=== PATIENT | male | born 2000 | race Hispanic/Latino ===

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

== ENCOUNTER 2020-12-16 20:09 | Emergency (ER) | payer OTHER, SELFPAY ==
--- OUTSIDE RECORDS SUMMARY | 2020-12-16 20:12 | XMS REPORT | Continuity of Care Document ---
:2000 Author Organization [facility] t Address [address] [place] [address] Care Team Providers Name Role Phone Jose Harrison MD Attending Clinician Problems This patient has no known problems. Allergies, Adverse Reactions, Alerts This patient has no known allergies or adverse reactions. Medications This patient has no known medications. Procedures This patient has no known procedures. Encounters Start End Encounter Admission Attending Care Care Encounter Source Date/Time Date/Time Type Type Clinicians Facility Department ID 2020-12-14 2020-12-14 Refill [facility] [id number] 00:00:00 00:00:00 Jose [facility] [id number] [place] [id number] [facility] [phone] [place] [address] [address] 2020-11-26 2020-11-26 Telephone [facility] [id number] 00:00:00 00:00:00 Jose Chan [id number] [place] [id number] [facility] [phone] [address] 2020-11-20 2020-11-20 Telephone [facility] [id number] 00:00:00 00:00:00 Jose Chan [id number] [place] [id number] [facility] [phone] [facility] 044 [facility] 2020-11-12 2020-11-12 Office JYOTI Harrison [id number] 12:49:24 13:48:31 Visit Jose Rocio [id number] [place] [id number] [facility] [phone] [address] Results This patient has no known results.
[2020-12-16 21:09] LABS: Absolute Lymphocytes (CBC) 1.3 K/uL (0.7-4.9); Basophils % 0.6 % (0-1.3); Hematocrit 38.7 % (39.6-49.0); MPV 9.3 fL (7.6-11.3); RBC Red Blood Cell Count 4.52 M/uL (4.33-5.43)
[2020-12-16 21:22] LABS: Protime INR 1.04
[2020-12-16 21:42] LABS: Urine Blood Negative (Negative); Urine Glucose Negative (Negative); Urine Protein 1+ (Negative); Urine pH 8.5 (5.0-7.0)
[2020-12-16 21:55] LABS: ALT/SGPT 67 U/L (12-78); AST/SGOT 32 U/L (15-37); Albumin 4.7 g/dL (3.4-5.0); Alkaline Phosphatase 66 U/L (45-117); BUN Blood Urea Nitrogen 10 mg/dL (7-18); Bicarbonate 25 mmol/L (21-32); Bilirubin Direct 0.1 mg/dL (0-0.2); Bilirubin Total 0.5 mg/dL (0.2-1.0); Glucose Level 108 mg/dL (74-106); Potassium 3.6 mmol/L (3.5-5.1); Protein, Total 8.6 g/dL (6.4-8.2); Sodium Level 139 mmol/L (136-145)
[2020-12-16] MEDS ORDERED: METHADONE HCL 10 MG TAB PO ONE (22:06)
[2020-12-16] MEDS ORDERED: NA CHLORIDE 0.9% 1,000 ML ONE (22:07)
[2020-12-16] MEDS ORDERED: ONDANSETRON 4 MG/2 ML VIAL ONE (22:07)
[2020-12-16 22:45] LABS: Barbiturates NEGATIVE (NEGATIVE); Benzodiazepines NEGATIVE (NEGATIVE); Cocaine NEGATIVE (NEGATIVE); METHAMPHETAM NEGATIVE (NEGATIVE); Methadone NEGATIVE (NEGATIVE); Opiates NEGATIVE (NEGATIVE); Phencyclidine NEGATIVE (NEGATIVE); THC Cannibis POSITIVE (NEGATIVE)
--- NOTE | 2020-12-16 22:55 | EDPHYS ---
Physician Documentation [facility] Name: Fly De Luna Age: 20 yrs Sex: Male : 2000 Arrival Date: 12/16/2020 Time: 20:11 Bed 7 Private MD: ED Physician Jignesh Manjarrez HPI: 12/16 22:20 This 20 yrs old Male presents to ER via Wheelchair with complaints of jr8 WITHDRAWING FROM FENTANYL. 22:20 Patient stated that he has been on a formulation of fentanyl for about a year. Uses jr8 daily and is trying to get off of it permanently. Has been off of it today and now going through withdrawal. Wanted to know if there is any thing we can do for him to help ease the pain. Severity of symptoms: At their worst the symptoms were moderate in the emergency department the symptoms are unchanged. The patient has not experienced similar symptoms in the past. The patient has not recently seen a physician. Historical: - Allergies: 20:26 PENICILLINS; jb4 - Home Meds: 20:26 None [Active]; jb4 - PMHx: 20:26 None; jb4 - PSHx: 20:26 None; jb4 - Immunization history:: Adult Immunizations up to date. - Social history:: Smoking status: Patient reports the use of cigarette tobacco products, Patient uses street drugs, Fentanyl.. ROS: 22:20 Eyes: Negative for injury, pain, redness, and discharge, ENT: Negative for injury, jr8 pain, and discharge, Neck: Negative for injury, pain, and swelling, Cardiovascular: Negative for chest pain, palpitations, and edema, Respiratory: Negative for shortness of breath, cough, wheezing, and pleuritic chest pain, Abdomen/GI: Negative for abdominal pain, nausea, vomiting, diarrhea, and constipation, Back: Negative for injury and pain, MS/Extremity: Negative for injury and deformity, Skin: Negative for injury, rash, and discoloration, Neuro: Negative for headache, weakness, numbness, tingling, and seizure, Psych: Negative for depression, anxiety, suicide ideation, homicidal ideation, and hallucinations. 22:20 Constitutional: Positive for body aches, generalized pain to entire body . Exam: 22:20 Eyes: Pupils equal round and reactive to light, extra-ocular motions intact. Lids and jr8 lashes normal. Conjunctiva and sclera are non-icteric and not injected. Cornea within normal limits. Periorbital areas with no swelling, redness, or edema. ENT: Nares patent. No nasal discharge, no septal abnormalities noted. Tympanic membranes are normal and external auditory canals are clear. Oropharynx with no redness, swelling, or masses, exudates, or evidence of obstruction, uvula midline. Mucous membranes moist. Neck: Trachea midline, no thyromegaly or masses palpated, and no cervical lymphadenopathy. Supple, full range of motion without nuchal rigidity, or vertebral point tenderness. No Meningismus. Cardiovascular: Regular rate and rhythm with a normal S1 and S2. No gallops, murmurs, or rubs. Normal PMI, no JVD. No pulse deficits. Respiratory: Lungs have equal breath sounds bilaterally, clear to auscultation and percussion. No rales, rhonchi or wheezes noted. No increased work of breathing, no retractions or nasal flaring. Abdomen/GI: Soft, non-tender, with normal bowel sounds. No distension or tympany. No guarding or rebound. No evidence of tenderness throughout. Back: No spinal tenderness. No costovertebral tenderness. Full range of motion. Skin: Warm, dry with normal turgor. Normal color with no rashes, no lesions, and no evidence of cellulitis. MS/ Extremity: Pulses equal, no cyanosis. Neurovascular intact. Full, normal range of motion. Neuro: Awake and alert, GCS 15, oriented to person, place, time, and situation. Cranial nerves II-XII grossly intact. Motor strength 5/5 in all extremities. Sensory grossly intact Psych: Awake, alert, with orientation to person, place and time. Behavior, mood, and affect are within normal limits. No SI/HI noted 22:20 Constitutional: The patient appears alert, awake, uncomfortable. Vital Signs: 20:23 BP 128 / 61; Pulse 85; Resp 18; Temp 97.7(O); Pulse Ox 99% on R/A; Weight 83.91 kg (R); jb4 Height 5 ft. 9 in. (175.26 cm); Pain 10/10; 22:00 BP 114 / 73; Pulse 57; Resp 18; Pulse Ox 97% on R/A; Pain 6/10; jb4 20:23 Body Mass Index 27.32 (83.91 kg, 175.26 cm) jb4 MDM: 20:45 Patient medically screened. rust 22:22 Data reviewed: vital signs, nurses notes, lab test result(s), EKG. Data interpreted: jr8 Pulse oximetry: on room air is 98 %. Interpretation: normal. Counseling: I had a detailed discussion with the patient and/or guardian regarding: the historical points, exam findings, and any diagnostic results supporting the discharge/admit diagnosis, lab results, the need for outpatient follow up, a family practitioner, to return to the emergency department if symptoms worsen or persist or if there are any questions or concerns that arise at home. ED course: Discussed with patient that this is only a temporary fix. That we cannot detox him here and that he needs to find a detox clinic in [place]. Patient understands and overall has improved. Hemodynamically stable at this time. No vomiting and can tolerate oral fluids . 12/16 20:44 Order name: Acetaminophen rust 12/16 20:44 Order name: Basic Metabolic Panel rust 12/16 20:44 Order name: CBC with Diff rust 12/16 20:44 Order name: ETOH Level rust 12/16 20:44 Order name: Hepatic Function; Complete Time: 22:08 rust 12/16 20:44 Order name: PT-INR; Complete Time: 21:37 rust 12/16 20:44 Order name: Ptt, Activated; Complete Time: 21:37 rust 12/16 20:44 Order name: Salicylate; Complete Time: 22:08 rust 12/16 20:44 Order name: Urine Drug Screen; Complete Time: 23:34 rust 12/16 20:45 Order name: Acetaminophen Level; Complete Time: 22:08 [facility] 12/16 20:45 Order name: Basic Metabolic Panel; Complete Time: 22:08 [facility] 12/16 20:45 Order name: CBC with Automated Diff; Complete Time: 21:37 [facility] 12/16 20:45 Order name: Alcohol Serum/Plasma; Complete Time: 21:37 [facility] 12/16 21:41 Order name: Urine Dipstick-Ancillary; Complete Time: 21:43 [facility] 12/16 20:44 Order name: EKG; Complete Time: 20:46 rust 12/16 20:44 Order name: EKG - Nurse/Tech; Complete Time: 21:03 rust 12/16 20:44 Order name: IV Saline Lock; Complete Time: 21:03 rust 12/16 20:44 Order name: Labs collected and sent; Complete Time: 21:03 rust 12/16 20:44 Order name: Urine Dipstick-Ancillary (obtain specimen); Complete Time: 21:42 rust Administered Medications: 21:51 Drug: methaDONE 10 mg {Note: RASS 0.} Route: PO; 21:53 Drug: NS 0.9% 1000 ml Route: IV; Rate: 1000 ml; Site: left antecubital; 21:55 Drug: Zofran (Ondansetron) 4 mg Route: IVP; Site: left antecubital; Disposition: 23:53 Co-signature as Attending Physician, Jignesh Manjarrez MD. fernando Disposition: 12/16/20 22:55 Discharged to Home. Impression: Opioid abuse, Opioid dependence with withdrawal. - Condition is Stable. - Discharge Instructions: Opioid Withdrawal. - Medication Reconciliation Form, Thank You Letter, Antibiotic Education, Prescription Opioid Use form. - Follow up: Private Physician; When: Tomorrow; Reason: Recheck today's complaints, Continuance of care, Re-evaluation by your physician. - Problem is new. - Symptoms have improved. Signatures: Dispatcher [employer] EDMS Jignesh Manjarrez MD MD [facility] Prasanna Burns PA PA rust Festus Kelsey RN RN jb4 Lizzie Blandon RN RN Carmine MariaD oloresMercedes mw2 Corrections: (The following items were deleted from the chart) 21:11 20:44 Suicide Screening ([place]) ordered. [facility] 23:03 22:55 12/16/2020 22:55 Discharged to Home. Impression: Opioid abuse; Opioid dependence mw2 with withdrawal. Condition is Stable. Forms are Medication Reconciliation Form, Thank You Letter, Antibiotic Education, Prescription Opioid Use. Follow up: Private Physician; When: Tomorrow; Reason: Recheck today's complaints, Continuance of care, Re-evaluation by your physician. Problem is new. Symptoms have improved. rust 23:35 22:20 Eyes: Negative for injury, pain, redness, and discharge, ENT: Negative for 8 injury, pain, and discharge, Neck: Negative for injury, pain, and swelling, Cardiovascular: Negative for chest pain, palpitations, and edema, Respiratory: Negative for shortness of breath, cough, wheezing, and pleuritic chest pain, Abdomen/GI: Negative for abdominal pain, nausea, vomiting, diarrhea, and constipation, Back: Negative for injury and pain, MS/Extremity: Negative for injury and deformity, Skin: Negative for injury, rash, and discoloration, Neuro: Negative for headache, weakness, numbness, tingling, and seizure, jr8 23:35 22:20 Eyes: Pupils equal round and reactive to light, extra-ocular motions intact. Lids jr8 and lashes normal. Conjunctiva and sclera are non-icteric and not injected. Cornea within normal limits. Periorbital areas with no swelling, redness, or edema. ENT: Nares patent. No nasal discharge, no septal abnormalities noted. Tympanic membranes are normal and external auditory canals are clear. Oropharynx with no redness, swelling, or masses, exudates, or evidence of obstruction, uvula midline. Mucous membranes moist. Neck: Trachea midline, no thyromegaly or masses palpated, and no cervical lymphadenopathy. Supple, full range of motion without nuchal rigidity, or vertebral point tenderness. No Meningismus. Cardiovascular: Regular rate and rhythm with a normal S1 and S2. No gallops, murmurs, or rubs. Normal PMI, no JVD. No pulse deficits. Respiratory: Lungs have equal breath sounds bilaterally, clear to auscultation and percussion. No rales, rhonchi or wheezes noted. No increased work of breathing, no retractions or nasal flaring. Abdomen/GI: Soft, non-tender, with normal bowel sounds. No distension or tympany. No guarding or rebound. No evidence of tenderness throughout. Back: No spinal tenderness. No costovertebral tenderness. Full range of motion. Skin: Warm, dry with normal turgor. Normal color with no rashes, no lesions, and no evidence of cellulitis. MS/ Extremity: Pulses equal, no cyanosis. Neurovascular intact. Full, normal range of motion. Neuro: Awake and alert, GCS 15, oriented to person, place, time, and situation. Cranial nerves II-XII grossly intact. Motor strength 5/5 in all extremities. Sensory grossly intact jr8
--- NOTE | 2020-12-16 22:55 | ER ---
Nurse's Notes [facility] Name: Fly De Luna Age: 20 yrs Sex: Male : 2000 Arrival Date: 12/16/2020 Time: 20:11 Bed 7 Private MD: Diagnosis: Opioid abuse;Opioid dependence with withdrawal Presentation: 12/16 20:23 Chief complaint: Patient states: I was taking fentanyl for recreational purposes and jb4 now I am just trying to stop and I am going through withdrawals. Coronavirus screen: Client denies travel out of the [place] in the last 14 days. At this time, the client does not indicate any symptoms associated with coronavirus-19. Ebola Screen: No symptoms or risks identified at this time. Initial Sepsis Screen: Does the patient meet any 2 criteria? No. Patient's initial sepsis screen is negative. Does the patient have a suspected source of infection? No. Patient's initial sepsis screen is negative. Risk Assessment: Do you want to hurt yourself or someone else? Patient reports no desire to harm self or others. Onset of symptoms was December 16, 2020. Transition of care: patient was not received from another setting of care. 20:23 Method Of Arrival: Wheelchair jb4 20:23 Acuity: DUC 2 jb4 Historical: - Allergies: 20:26 PENICILLINS; jb4 - Home Meds: 20:26 None [Active]; jb4 - PMHx: 20:26 None; jb4 - PSHx: 20:26 None; jb4 - Immunization history:: Adult Immunizations up to date. - Social history:: Smoking status: Patient reports the use of cigarette tobacco products, Patient uses street drugs, Fentanyl.. Screenin:02 Abuse screen: Denies threats or abuse. Nutritional screening: No deficits noted. vg1 Tuberculosis screening: No symptoms or risk factors identified. Fall Risk No fall in past 12 months (0 pts). No secondary diagnosis (0 pts). IV access (20 points). Ambulatory Aid- None/Bed Rest/Nurse Assist (0 pts). Gait- Normal/Bed Rest/Wheelchair (0 pts) Mental Status- Oriented to own ability (0 pts). Total Fernandez Fall Scale indicates No Risk (0-24 pts). Assessment: 20:45 General: Appears in no apparent distress. uncomfortable, Behavior is cooperative, vg1 anxious, crying. Pain: Complains of pain in pt states 'whole body hurts' Pain currently is 10 out of 10 on a pain scale. Neuro: Level of Consciousness is awake, alert, obeys commands, Oriented to person, place, time, situation. Cardiovascular: Capillary refill < 3 seconds in bilateral. Respiratory: Airway is patent Respiratory effort is even, unlabored, Respiratory pattern is tachypnea. GI: Reports nausea, vomiting. : No signs and/or symptoms were reported regarding the genitourinary system. EENT: No signs and/or symptoms were reported regarding the EENT system. Derm: Skin is intact, Skin is diaphoretic. Musculoskeletal: Circulation, motion, and sensation intact. 21:45 Reassessment: spoke to by phone who said she is the pt's mother and this person bb states that the pt should not be discharged but transferred to a psychiatric facility. She claims that he is not in his right mind and is suicidal I instructed her that I would notify the ED provider. Prasanna GREEN was notified. 22:18 Reassessment: Patient appears in no apparent distress at this time. Patient and/or jb4 family updated on plan of care and expected duration. Pain level reassessed. Patient is alert, oriented x 3, equal unlabored respirations, skin warm/dry/pink. Pt reports pain is returning, provider notified, no new orders at this time. Vital Signs: 20:23 BP 128 / 61; Pulse 85; Resp 18; Temp 97.7(O); Pulse Ox 99% on R/A; Weight 83.91 kg (R); jb4 Height 5 ft. 9 in. (175.26 cm); Pain 10/10; 22:00 BP 114 / 73; Pulse 57; Resp 18; Pulse Ox 97% on R/A; Pain 6/10; jb4 20:23 Body Mass Index 27.32 (83.91 kg, 175.26 cm) jb4 ED Course: 20:11 Patient arrived in ED. cf2 20:26 Triage completed. jb4 20:26 Arm band placed on right wrist. jb4 20:42 Nathalie Ragsdale, RN is Primary Nurse. vg1 20:44 Prasanna Burns PA is PHCP. jr8 20:44 Jignesh Manjarrez MD is Attending Physician. jr8 20:55 Missed attempt(s): 20 gauge Bleeding controlled, band aid applied, catheter tip intact. oe 21:02 Patient has correct armband on for positive identification. Placed in gown. Bed in low vg1 position. Call light in reach. Side rails up X2. Adult w/ patient. 21:03 Inserted saline lock: 20 gauge in left antecubital area, using aseptic technique. Blood oe collected. 23:00 No provider procedures requiring assistance completed. IV discontinued, intact, jb4 bleeding controlled, No redness/swelling at site. Pressure dressing applied. Administered Medications: 21:51 Drug: methaDONE 10 mg {Note: RASS 0.} Route: PO; 21:53 Drug: NS 0.9% 1000 ml Route: IV; Rate: 1000 ml; Site: left antecubital; 21:55 Drug: Zofran (Ondansetron) 4 mg Route: IVP; Site: left antecubital; Outcome: 22:55 Discharge ordered by . jr8 23:00 Discharged to home via wheelchair. jb4 23:00 Condition: stable 23:00 Discharge instructions given to patient, Instructed on discharge instructions, follow up and referral plans. Demonstrated understanding of instructions, follow-up care. 23:03 Patient left the ED. mw2 Signatures: Jazmin Eason RN RN Prasanna Merritt PA PA jr8 Festus Kelsey, RN RN jb4 Volodymyr Murray Winsy, RN RN Carl Lou mw2 Lucy Cutler 2 Nathalie Ragsdale, RN RN vg1 Corrections: (The following items were deleted from the chart) 21:49 21:45 Reassessment: spoke to ladchelsea by phone who said she is the pt's mother and this bb person states that the pt should not be discharged but transferred to a psychiatric facility. I instructed her that I would notify the ED provider. Prasanna GREEN was notified. bb 23:06 23:05 No provider procedures requiring assistance completed. jb4 jb4 23:06 23:05 IV discontinued, intact, bleeding controlled, No redness/swelling at site. jb4 Pressure dressing applied, jb4
[2020-12-16 23:20] VITALS: BP 114/73; O2SAT 97
[2020-12-16 23:22] VITALS: TEMP 97.7
== END 2020-12-16 23:03 | disposition home or self-care (01) ==
LOC: ER 20:09
DX: F11.23 Opioid dependence with withdrawal (principal); F17.210 Nicotine dependence, cigarettes, uncomplicated; Z88.0 Allergy status to penicillin
CPT/HCPCS: 36415; 80048; 80076; 80307; 80320; 80329; 81003; 85025; 85610; 85730; 93005; 96374; 99283; J2405; J7030

== ENCOUNTER 2023-07-10 02:14 | Emergency (ER) | payer SELFPAY ==
--- OUTSIDE RECORDS SUMMARY | 2023-07-10 02:19 | XMS REPORT | Continuity of Care Document ---
:2000 Author Organization [facility] t Address [address] [place] [address] Care Team Providers Name Role Phone Ortiz Harrison MD Primary Care Physician Ortiz Harrison MD Attending Clinician Pob, [facility] Main Attending Clinician Unavailable ORTIZ HARRISON Attending Clinician Unavailable Doctor Unassigned, Road Runner Attending Clinician Unavailable 2, [facility] Attending Clinician Unavailable Rachna Velasquez MD Attending Clinician RACHNA VELASQUEZ Attending Clinician Unavailable Alejandra Mccullough Attending Clinician Unavailable Cony Stafford Attending Clinician Payers Payer Name Policy Type Policy Number Effective Date Expiration Date S ource Problems Condition Condition Condition Status Onset Resolution Last Treating Co mments Source Name Details Category Date Date Treatment Clinician Date Mixed Mixed Disease Active Univers dyslipidem dyslipidem 8-12 it y of ia ia 00:00: [place] [address] Medical Branch Need for Need for Disease Active Unive rs hepatitis hepatitis 8-12 ity of C C 00:00: [place] screening screening 00 Medi tricia test test Branch Essential Essential Disease Active Uni vers hypertensi hypertensi 3-25 it y of on on 00:00: [place] [address] Medical Branch NO SHOW NO SHOW Disease Active 2020-1 Univers 2-01 ity of 00:00: [place] [facility] Anxiety Anxiety Disease Active [facility] and and 9 [place] Under or Under or Disease Active Unive rs uninsured uninsured 3-08 ity of 00:00: [place] [facility] Allergic Allergic Disease Active 2018-08 Unive rs rhinitis, rhinitis, 08-29 ity [place] unspecifie [place] Medical seasonalit seasonalit Br anch y, y, unspecifie unspecifie d trigger d trigger Insomnia, Insomnia, Disease Active Uni vers unspecifie unspecifie 05-01 it y of d type d type 00:00: Medical Branch Acne Acne Disease Active 2015-08 Univers vulgaris vulgaris 09-17 ity of 00:00: Medical Branch Acne Acne Disease Active 2015-08 Univers vulgaris vulgaris 09-17 ity of 00:00: Medical Branch ADHD ADHD Disease Active Overview: Univer s (attention (attention Formattin ity of deficit deficit g of this [place] hyperactiv hyperactiv note Me dical ity ity might be Branch disorder) disorder) different from the original. On Adderall since 2017 Allergies, Adverse Reactions, Alerts Allergy Allergy Status Severity Reaction(s) Onset Inactive Treating Comm ents Source Name Type Date Date Clinician CEPHALOS Drug Active Med Other-Cmnt Univ ers PORINS Class - ity of 00:00: [place] [facility] Cephalos Propensi Active Other - See Throat U nivers porins ty to comments 05-02 itching, ity of adverse 00:00: shortness [place] reaction 00 of breath Medic al s Branch PENICILL DRUG Active Rash Univers IN G INGREDI 12-14 ity of 00:00: [place] [facility] Penicill Propensi Active Rash Univer s in G ty to 12-14 ity of adverse 00:00: [place] reaction 00 Medical s Branch Social History Social Habit Start Date Stop Date Quantity Comments Source Exposure to Not sure University of SARS-CoV-2 [place] [facility] (event) Branch Alcohol intake 2021-05-11 2021-05-11 Current University of 00:00:00 00:00:00 non-drinker of [facility] alcohol Branch (finding) Tobacco use and 2021-04-01 2021-04-01 Never used Universit y of exposure 00:00:00 00:00:00 [facility] Sex Assigned At 2000 2000 Universit y of 00:00:00 00:00:00 [facility] Smoking Status Start Date Stop Date Source Never smoker [facility] Medications Ordered Filled Start Stop Current Ordering Indication Dosage Frequency Signature Comments Components Source Medication Medication Date Date Medication? Clinician (SIG) Name Name dextroamphe Yes [id number] 30mg Take 1 Univers tamine-amph 9-21 tablet by ity of etamine 30 [place] 00 (two) Medical times Branch daily. Take one tablet each morning and one tablet after lunch at school. dextroamphe Yes [id number] 30mg Take 1 Univers tamine-amph 9-21 tablet by ity of etamine 30 00:00[place] 00 (two) Medical times Branch daily. Take one tablet each morning and one tablet after lunch at school. dextroamphe Yes [id number] 30mg Take 1 Univers tamine-amph 9-21 tablet by ity of etamine 30 00:00: [place] 00 (two) Medical times Branch daily. Take one tablet each morning and one tablet after lunch at school. cloNIDine Yes .2mg Take 0.2 Univ ers 0.2 mg 8-12 mg by ity of tablet 18:44: mouth once now. Take Medical at bedtime Branch cloNIDine 2020-0 Yes .2mg Take 0.2 Univ ers 0.2 mg 8-12 mg by ity of tablet 18:44: mouth once now. Take Medical at bedtime Branch cloNIDine 2020-0 Yes .2mg Take 0.2 Univ ers 0.2 mg 8-12 mg by ity of tablet 18:44: mouth once now. Take Medical at bedtime Branch cloNIDine 2020-0 Yes .2mg Take 0.2 Univ ers 0.2 mg 8-12 mg by ity of tablet 18:44: mouth once now. Take Medical at bedtime Branch cloNIDine 2020-0 Yes .2mg Take 0.2 Univ ers 0.2 mg 8-12 mg by ity of tablet 13:44: mouth once now. Take Medical at bedtime Branch cloNIDine 0 Yes .2mg Take 0.2 Univ ers 0.2 mg 8-12 mg by ity of tablet 13:44: mouth once 07 now. Take Medical at bedtime Branch cloNIDine 0 Yes .2mg Take 0.2 Univ ers 0.2 mg 8-12 mg by ity of tablet 13:44: mouth once 07 now. Take Medical at bedtime Branch lisinopriL 0 Yes [id number] 5mg Take 1 U nivers 5 mg tablet 8-12 tablet by ity of 00:00: mouth [place] 00 daily. Medical Branch ezetimibe 0 Yes [id number] 10mg Take 1 U nivers (ZETIA) 10 8-12 tablet by ity of mg tablet 00:00: mouth [place] 00 daily. Medical Branch atorvastati Yes [id number] 40mg Take 1 Univers n 40 mg 8-12 tablet by ity of tablet 00:00: mouth at [place] 00 bedtime. Medical Branch dextroamphe Yes [id number] 30mg Take 1 Univers tamine-amph 8-12 tablet by ity of etamine 30 00:00: [place] tablet 00 (two) Medical times Branch daily. Take one tablet each morning and one tablet after lunch at school. lisinopriL 0 Yes [id number] 5mg Take 1 U nivers 5 mg tablet 8-12 tablet by ity of 00:00: mouth [place] 00 daily. Medical Branch ezetimibe 0 Yes [id number] 10mg Take 1 U nivers (ZETIA) 10 8-12 tablet by ity of mg tablet 00:00: mouth [place] 00 daily. Medical Branch atorvastati Yes [id number] 40mg Take 1 Univers n 40 mg 8-12 tablet by ity of tablet 00:00: mouth at [place] 00 bedtime. Medical Branch dextroamphe Yes [id number] 30mg Take 1 Univers tamine-amph 8-12 tablet by ity of etamine 30 00:00: mouth [place] tablet 00 (two) Medical times Branch daily. Take one tablet each morning and one tablet after lunch at school. lisinopriL 2020-0 Yes [id number] 5mg Take 1 U nivers 5 mg tablet 8-12 tablet by ity of 00:00: mouth [place] 00 daily. Medical Branch ezetimibe 2020-0 Yes [id number] 10mg Take 1 U nivers (ZETIA) 10 8-12 tablet by ity of mg tablet 00:00: mouth [place] 00 daily. Medical Branch atorvastati 2020-0 Yes [id number] 40mg Take 1 Univers n 40 mg 8-12 tablet by ity of tablet 00:00: mouth at [place] 00 bedtime. Medical Branch dextroamphe 2020-0 Yes [id number] 30mg Take 1 Univers tamine-amph 8-12 tablet by ity of etamine 30 00:00: [place] tablet 00 (two) Medical times Branch daily. Take one tablet each morning and one tablet after lunch at school. lisinopriL 2020-0 Yes [id number] 5mg Take 1 U nivers 5 mg tablet 8-12 tablet by ity of 00:00: mouth [place] 00 daily. Medical Branch ezetimibe 2020-0 Yes [id number] 10mg Take 1 U nivers (ZETIA) 10 8-12 tablet by ity of mg tablet 00:00: mouth [place] 00 daily. Medical Branch atorvastati 2020-0 Yes [id number] 40mg Take 1 Univers n 40 mg 8-12 tablet by ity of tablet 00:00: mouth at [place] 00 bedtime. Medical Branch dextroamphe 2020-0 Yes [id number] 30mg Take 1 Univers tamine-amph 8-12 tablet by ity of etamine 30 00:00: mouth [place] tablet 00 (two) Medical times Branch daily. Take one tablet each morning and one tablet after lunch at school. lisinopriL 2020-0 Yes [id number] 5mg Take 1 U nivers 5 mg tablet 8-12 tablet by ity of 00:00: mouth [place] 00 daily. Medical Branch ezetimibe 2020-0 Yes [id number] 10mg Take 1 U nivers (ZETIA) 10 8-12 tablet by ity of mg tablet 00:00: mouth [place] 00 daily. Medical Branch atorvastati 2020-0 Yes [id number] 40mg Take 1 Univers n 40 mg 8-12 tablet by ity of tablet 00:00: mouth at [place] 00 bedtime. Medical Branch lisinopriL 2020-0 Yes [id number] 5mg Take 1 U nivers 5 mg tablet 8-12 tablet by ity of 00:00: mouth [place] 00 daily. Medical Branch ezetimibe 2020-0 Yes [id number] 10mg Take 1 U nivers (ZETIA) 10 8-12 tablet by ity of mg tablet 00:00: mouth [place] 00 daily. Medical Branch atorvastati 2020-0 Yes [id number] 40mg Take 1 Univers n 40 mg 8-12 tablet by ity of tablet 00:00: mouth at [place] 00 bedtime. Medical Branch lisinopriL 0 Yes [id number] 5mg Take 1 U nivers 5 mg tablet 8-12 tablet by ity of 00:00: mouth [place] 00 daily. Medical Branch ezetimibe 0 Yes [id number] 10mg Take 1 U nivers (ZETIA) 10 8-12 tablet by ity of mg tablet 00:00: mouth [place] 00 daily. Medical Branch atorvastati 0 Yes [id number] 40mg Take 1 Univers n 40 mg 8-12 tablet by ity of tablet 00:00: mouth at [place] 00 bedtime. Medical Branch dextroamphe 2020- No [id number] 30mg Take 1 Univers tamine-amph 04-01 tablet by it y of etamine 30 00:00: 00:00 mouth 2 [place] mg tablet 00 :00 (two) Medical times Branch daily. Take one tablet each morning and one tablet after lunch at school. dextroamphe 2020- No [id number] 30mg Take 1 Univers tamine-amph 04-01 tablet by it y of etamine 30 00:00: 00:00 mouth 2 [place] mg tablet 00 :00 (two) Medical times Branch daily. Take one tablet each morning and one tablet after lunch at school. dextroamphe 2020- No [id number] 30mg Take 1 Univers tamine-amph 04-01 tablet by it y of etamine 30 00:00: 00:00 mouth 2 [place] mg tablet 00 :00 (two) Medical times Branch daily. Take one tablet each morning and one tablet after lunch at school. dextroamphe Yes [id number] 30mg Take 1 Univers tamine-amph 5-19 tablet by ity of etamine 30 00:00: [place] tablet 00 (two) Medical times Branch daily. Take one tablet each morning and one tablet after lunch at school. dextroamphe 2020- No [id number] 30mg Take 1 Univers tamine-amph 5-19 08-12 tablet by it y of etamine 30 00:00: 00:00 mouth 2 [place] mg tablet 00 :00 (two) Medical times Branch daily. Take one tablet each morning and one tablet after lunch at school. dextroamphe 2020- No [id number] 30mg Take 1 Univers tamine-amph 5-19 08-12 tablet by it y of etamine 30 00:00: 00:00 mouth 2 [place] mg tablet 00 :00 (two) Medical times Branch daily. Take one tablet each morning and one tablet after lunch at school. dextroamphe Yes [id number] 30mg Take 1 Univers tamine-amph 4-27 tablet by ity of etamine 30 00:00: mouth [place] tablet 00 (two) Medical times Branch daily. Take one tablet each morning and one tablet after lunch at school. dextroamphe 2020- No [id number] 30mg Take 1 Univers tamine-amph 4-27 05-19 tablet by it y of etamine 30 00:00: 00:00 mouth 2 [place] mg tablet 00 :00 (two) Medical times Branch daily. Take one tablet each morning and one tablet after lunch at school. atorvastati Yes [id number] 40mg Take 1 Univers n 40 mg 4-02 tablet by ity of tablet 00:00: mouth at [place] 00 bedtime. Medical Branch ezetimibe Yes [id number] 10mg Take 1 U nivers (ZETIA) 10 4-02 tablet by ity of mg tablet 00:00: mouth [place] 00 daily. Medical Branch atorvastati Yes [id number] 40mg Take 1 Univers n 40 mg 4-02 tablet by ity of tablet 00:00: mouth at [place] 00 bedtime. Medical Branch ezetimibe Yes [id number] 10mg Take 1 U nivers (ZETIA) 10 4-02 tablet by ity of mg tablet 00:00: mouth [place] 00 daily. Medical Branch atorvastati Yes [id number] 40mg Take 1 Univers n 40 mg 4-02 tablet by ity of tablet 00:00: mouth at [place] 00 bedtime. Medical Branch ezetimibe Yes [id number] 10mg Take 1 U nivers (ZETIA) 10 4-02 tablet by ity of mg tablet 00:00: mouth [place] 00 daily. Medical Branch atorvastati Yes [id number] 40mg Take 1 Univers n 40 mg 4-02 tablet by ity of tablet 00:00: mouth at [place] 00 bedtime. Medical Branch ezetimibe Yes [id number] 10mg Take 1 U nivers (ZETIA) 10 4-02 tablet by ity of mg tablet 00:00: mouth [place] 00 daily. Medical Branch atorvastati 2020- No [id number] 40mg Take 1 Univers n 40 mg 4-02 08-12 tablet by ity of tablet 00:00: 00:00 mouth at [place] 00 :00 bedtime. Medical Branch ezetimibe 2020- No [id number] 10mg Take 1 Univers (ZETIA) 10 4-02 08-12 tablet by ity of mg tablet 00:00: 00:00 mouth [place] 00 :00 daily. Medical Branch atorvastati 2020- No [id number] 40mg Take 1 Univers n 40 mg 4-02 08-12 tablet by ity of tablet 00:00: 00:00 mouth at [place] 00 :00 bedtime. Medical Branch ezetimibe 2020- No [id number] 10mg Take 1 Univers (ZETIA) 10 4-02 08-12 tablet by ity of mg tablet 00:00: 00:00 mouth [place] 00 :00 daily. Medical Branch Melatonin 5 Yes [id number] 5mg Take 1 U nivers mg tablet 3-25 tablet by ity o f 00:00: mouth at [place] 00 bedtime. Medical Branch dextroamphe Yes [id number] 30mg Take 1 Univers tamine-amph 3-25 tablet by ity of etamine 30 00:00: mouth 2 [place] mg tablet 00 (two) Medical times Branch daily. Take one tablet each morning and one tablet after lunch at school. lisinopriL Yes [id number] 5mg Take 1 U nivers 5 mg tablet 3-25 tablet by ity of 00:00: mouth [place] 00 daily. Medical Branch Miscellaneo Yes [id number] I10 - U nivers us Medical 3-25 Dispense ity o f Supply Kit 00:00: blood [place] 00 pressure Medical cuff (any Branch brand), take BP at home BID Melatonin 5 2020-0 Yes [id number] 5mg Take 1 U nivers mg tablet 3-25 tablet by ity o f 00:00: mouth at [place] 00 bedtime. Medical Branch dextroamphe Yes [id number] 30mg Take 1 Univers tamine-amph 3-25 tablet by ity of etamine 30 00:00: mouth 2 [place] mg tablet 00 (two) Medical times Branch daily. Take one tablet each morning and one tablet after lunch at school. lisinopriL Yes [id number] 5mg Take 1 U nivers 5 mg tablet 3-25 tablet by ity of 00:00: mouth [place] 00 daily. Medical Branch Miscellaneo Yes [id number] I10 - U nivers us Medical 3-25 Dispense ity o f Supply Kit 00:00: blood [place] 00 pressure Medical cuff (any Branch brand), take BP at home BID Melatonin 5 2020-0 Yes [id number] 5mg Take 1 U nivers mg tablet 3-25 tablet by ity o f 00:00: mouth at [place] 00 bedtime. Medical Branch dextroamphe Yes [id number] 30mg Take 1 Univers tamine-amph 3-25 tablet by ity of etamine 30 00:00: mouth 2 [place] mg tablet 00 (two) Medical times Branch daily. Take one tablet each morning and one tablet after lunch at school. lisinopriL Yes [id number] 5mg Take 1 U nivers 5 mg tablet 3-25 tablet by ity of 00:00: mouth [place] 00 daily. Medical Branch Miscellaneo Yes [id number] I10 - U nivers us Medical 3-25 Dispense ity o f Supply Kit 00:00: blood [place] pressure Medical cuff (any Branch brand), take BP at home BID Melatonin 5 Yes [id number] 5mg Take 1 U nivers mg tablet 3-25 tablet by ity o f 00:00: mouth at [place] 00 bedtime. Medical Branch dextroamphe Yes [id number] 30mg Take 1 Univers tamine-amph 3-25 tablet by ity of etamine 30 00:00: mouth 2 [place] mg tablet 00 (two) Medical times Branch daily. Take one tablet each morning and one tablet after lunch at school. lisinopriL Yes [id number] 5mg Take 1 U nivers 5 mg tablet 3-25 tablet by ity of 00:00: mouth [place] 00 daily. Medical Branch Miscellaneo Yes [id number] I10 - U nivers us Medical 3-25 Dispense ity o f Supply Kit 00:00: blood [place] pressure Medical cuff (any Branch brand), take BP at home BID Melatonin 5 Yes [id number] 5mg Take 1 U nivers mg tablet 3-25 tablet by ity o f 00:00: mouth at [place] 00 bedtime. Medical Branch lisinopriL Yes [id number] 5mg Take 1 U nivers 5 mg tablet 3-25 tablet by ity of 00:00: mouth [place] 00 daily. Medical Branch Miscellaneo Yes [id number] I10 - U nivers us Medical 3-25 Dispense ity o f Supply Kit 00:00: blood [place] pressure Medical cuff (any Branch brand), take BP at home BID Melatonin 5 Yes [id number] 5mg Take 1 U nivers mg tablet 3-25 tablet by ity o f 00:00: mouth at [place] 00 bedtime. Medical Branch lisinopriL Yes [id number] 5mg Take 1 U nivers 5 mg tablet 3-25 tablet by ity of 00:00: mouth [place] 00 daily. Medical Branch Miscellaneo Yes [id number] I10 - U nivers us Medical 3-25 Dispense ity o f Supply Kit 00:00: blood [place] pressure Medical cuff (any Branch brand), take BP at home BID Melatonin 5 Yes [id number] 5mg Take 1 U nivers mg tablet 3-25 tablet by ity o f 00:00: mouth at [place] 00 bedtime. Medical Branch Miscellaneo Yes [id number] I10 - U nivers Medical 3-25 Dispense ity o f Supply Kit 00:00: blood pressure Medical cuff (any Branch brand), take BP at home BID Melatonin 5 2020- Yes [id number] 5mg Take 1 U nivers mg tablet 3-25 tablet by ity o f 00:00: mouth at [place] 00 bedtime. Medical Branch Miscellaneo Yes [id number] I10 - U nivers [facility] 3-25 Dispense ity o f Supply Kit 00:00: blood pressure Medical cuff (any Branch brand), take BP at home BID Melatonin 5 Yes [id number] 5mg Take 1 U nivers mg tablet 3-25 tablet by ity o f 00:00: mouth at [place] 00 bedtime. Medical Branch Miscellaneo Yes [id number] I10 - U nivers [facility] 3-25 Dispense ity o f Supply Kit 00:00: blood pressure Medical cuff (any Branch brand), take BP at home BID Melatonin 5 Yes [id number] 5mg Take 1 U nivers mg tablet 3-25 tablet by ity o f 00:00: mouth at [place] 00 bedtime. Medical Branch Miscellaneo Yes [id number] I10 - U nivers [facility] 3-25 Dispense ity o f Supply Kit 00:00: blood pressure Medical cuff (any Branch brand), take BP at home BID Melatonin 5 Yes [id number] 5mg Take 1 U nivers mg tablet 3-25 tablet by ity o f 00:00: mouth at [place] 00 bedtime. Medical Branch Miscellaneo Yes [id number] I10 - U nivers Medical 3-25 Dispense ity o f Supply Kit 00:00: blood pressure Medical cuff (any Branch brand), take BP at home BID Melatonin 5 2020- Yes [id number] 5mg Take 1 U nivers mg tablet 3-25 tablet by ity o f 00:00: mouth at [place] 00 bedtime. Medical Branch Miscellaneo Yes [id number] I10 - U nivers us Medical 3-25 Dispense ity o f Supply Kit 00:00: blood [place] 00 pressure Medical cuff (any Branch brand), take BP at home BID Melatonin 5 Yes [id number] 5mg Take 1 U nivers mg tablet 3-25 tablet by ity o f 00:00: mouth at [place] 00 bedtime. Medical Branch Miscellaneo Yes [id number] I10 - U nivers us Medical 3-25 Dispense ity o f Supply Kit 00:00: blood [place] 00 pressure Medical cuff (any Branch brand), take BP at home BID lisinopriL 2020- No [id number] 5mg Take 1 Univers 5 mg tablet 3-25 08-12 tablet by it y of 00:00: 00:00 mouth [place] 00 :00 daily. Medical Branch lisinopriL 2020- No [id number] 5mg Take 1 Univers 5 mg tablet 3-25 08-12 tablet by it y of 00:00: 00:00 mouth [place] 00 :00 daily. Medical Branch dextroamphe 2020- No [id number] 30mg Take 1 Univers tamine-amph 3-25 04-27 tablet by it y of etamine 30 00:00: 00:00 mouth 2 [place] tablet 00 :00 (two) Medical times [place] daily. Take one tablet each morning and one tablet after lunch at school. dextroamphe 2019-08 Yes [id number] 30mg Take 1 Univers tamine-amph 2-13 tablet by ity of etamine 30 00:00: mouth 2 [place] mg tablet 00 (two) Medical times Branch daily. Take one tablet each morning and one tablet after lunch at school. dextroamphe 2019-08 Yes [id number] 30mg Take 1 Univers tamine-amph 2-13 tablet by ity of etamine 30 00:00: mouth 2 [place] mg tablet 00 (two) Medical times Branch daily. Take one tablet each morning and one tablet after lunch at school. dextroamphe 2019-08- No [id number] 30mg Take 1 Univers tamine-amph 2-13 03-25 tablet by it y of etamine 30 00:00: 00:00 mouth 2 [place] mg tablet 00 :00 (two) Medical times Branch daily. Take one tablet each morning and one tablet after lunch at school. dextroamphe 2019-08- No [id number] 30mg Take 1 Univers tamine-amph 2-13 -25 tablet by it y of etamine 30 00:00: 00:00 mouth 2 [place] mg tablet 00 :00 (two) Medical times Branch daily. Take one tablet each morning and one tablet after lunch at school. dextroamphe 2019-08- No [id number] 30mg Take 1 Univers tamine-amph 2-13 -25 tablet by it y of etamine 30 00:00: 00:00 mouth 2 [place] mg tablet 00 :00 (two) Medical times Branch daily. Take one tablet each morning and one tablet after lunch at school. Melatonin 2019-08 Yes [id number] 5mg Take 1 Univers mg tablet 1-11 tablet by ity o f 00:00: mouth at [place] 00 bedtime. Medical Branch dextroamphe 2019-08 Yes [id number] 30mg Take 1 Univers tamine-amph 1-11 tablet by ity of etamine 30 00:00: mouth 2 [place] mg tablet 00 (two) Medical times Branch daily. Take one tablet each morning and one tablet after lunch at school. Melatonin 2019-08 Yes [id number] 5mg Take 1 Univers mg tablet 1-11 tablet by ity o f 00:00: mouth at [place] 00 bedtime. Medical Branch dextroamphe 2019-08 Yes [id number] 30mg Take 1 Univers tamine-amph 1-11 tablet by ity of etamine 30 00:00: mouth 2 [place] mg tablet 00 (two) Medical times Branch daily. Take one tablet each morning and one tablet after lunch at school. Melatonin 2019-08 Yes [id number] 5mg Take 1 Univers mg tablet 1-11 tablet by ity o f 00:00: mouth at [place] 00 bedtime. Medical Branch dextroamphe 2019-08 Yes [id number] 30mg Take 1 Univers tamine-amph 1-11 tablet by ity of etamine 30 00:00: mouth 2 [place] mg tablet 00 (two) Medical times Branch daily. Take one tablet each morning and one tablet after lunch at school. Melatonin 2019-08 Yes [id number] 5mg Take 1 Univers mg tablet 1-11 tablet by ity o f 00:00: mouth at [place] 00 bedtime. Medical Branch Melatonin 5 2019-08 Yes [id number] 5mg Take 1 Univers mg tablet 1-11 tablet by ity o f 00:00: mouth at [place] 00 bedtime. Medical Branch Melatonin 5 2019-08- No [id number] 5mg Take 1 Univers mg tablet 1-11 03-25 tablet by ity of 00:00: 00:00 mouth at [place] 00 :00 bedtime. Medical Branch Melatonin 5 2019-08- No [id number] 5mg Take 1 Univers mg tablet 1-11 -25 tablet by ity of 00:00: 00:00 mouth at [place] 00 :00 bedtime. Medical Branch Melatonin 5 2019-08- No [id number] 5mg Take 1 Univers mg tablet 1-11 03-25 tablet by ity of 00:00: 00:00 mouth at [place] 00 :00 bedtime. Medical Branch dextroamphe 2019-08- No [id number] 30mg Take 1 Univers tamine-amph 1-11 12-07 tablet by it y of etamine 30 00:00: 00:00 mouth 2 [place] mg tablet 00 :00 (two) Medical times Branch daily. Take one tablet each morning and one tablet after lunch at school. dextroamphe 2019-08- No [id number] 30mg Take 1 Univers tamine-amph 1-11 11-11 tablet by it y of etamine 30 00:00: 00:00 mouth 2 [place] mg tablet 00 :00 (two) Medical times Branch daily. Take one tablet each morning and one tablet after lunch at school. dextroamphe 2019-08 Yes [id number] 30mg Take 1 [facility] tamine-amph 0-07 tablet by ity of etamine 30 00:00: mouth 2 [place] mg tablet 00 (two) Medical times Branch daily. Take one tablet each morning and one tablet after lunch at school. dextroamphe 2019-08- No [id number] 30mg Take 1 Univers tamine-amph 0-07 11-11 tablet by it y of etamine 30 00:00: 00:00 mouth 2 [place] mg tablet 00 :00 (two) Medical times Branch daily. Take one tablet each morning and one tablet after lunch at school. Melatonin 5 Yes [id number] 5mg Take 1 Univers mg tablet 9-17 tablet by ity o f 00:00: mouth at [place] 00 bedtime. Medical Branch Melatonin 5 2020-0 Yes [id number] 5mg Take 1 Univers mg tablet 9-17 tablet by ity o f 00:00: mouth at [place] 00 bedtime. Medical Branch Melatonin 5 2020-0 Yes [id number] 5mg Take 1 Univers mg tablet 9-17 tablet by ity o f 00:00: mouth at [place] 00 bedtime. Medical Branch Melatonin 5 2019-0 2020- No [id number] 5mg Take 1 Univers mg tablet 9-17 11-11 tablet by ity of 00:00: 00:00 mouth at [place] 00 :00 bedtime. Medical Branch dextroamphe 2020-0 Yes [id number] 30mg Take 1 [facility] tamine-amph 9-08 tablet by ity of etamine 30 00:00: mouth 2 [place] mg tablet 00 (two) Medical times Branch daily. Take one tablet each morning and one tablet after lunch at school. dextroamphe 2020-0 Yes [id number] 30mg Take 1 [facility] tamine-amph 9-08 tablet by ity of etamine 30 00:00: mouth 2 [place] mg tablet 00 (two) Medical times Branch daily. Take one tablet each morning and one tablet after lunch at school. dextroamphe 2020-0 Yes [id number] 30mg Take 1 [facility] tamine-amph 9-08 tablet by ity of etamine 30 00:00: mouth 2 [place] mg tablet 00 (two) Medical times Branch daily. Take one tablet each morning and one tablet after lunch at school. dextroamphe 2019-0 2020- No [id number] 30mg Take 1 Univers tamine-amph 9-08 10-07 tablet by it y of etamine 30 00:00: 00:00 mouth 2 [place] [facility] mg tablet 00 :00 (two) Medical times Branch daily. Take one tablet each morning and one tablet after lunch at school. dextroamphe 2020-0 Yes [id number] 30mg Take 1 [facility] tamine-amph 8-10 tablet by [facility] [place] 30 00:00: mouth [place] tablet 00 (two) [facility] times [facility] daily. Take one tablet each morning and one tablet after lunch at school. cloNIDine 2020-0 Yes [id number] .3mg Take 1 [facility] n[facility] 0.3 mg 8-10 tablet by ity of tablet 00:00: mouth at [place] 00 bedtime. Medical Branch cloNIDine 2020-0 Yes [id number] .3mg Take 1 [facility] n[facility] 0.3 mg 8-10 tablet by ity of tablet 00:00: mouth at [place] 00 bedtime. Medical Branch cloNIDine 2019-0 2019- No [id number] .3mg Take 1 [facility] 0.3 mg 8-10 09-17 tablet by ity of tablet 00:00: 00:00 mouth at [place] 00 :00 bedtime. Medical Branch cloNIDine 2019-0 2019- No [id number] .3mg Take 1 [facility] 0.3 mg 8-10 09-17 tablet by ity of tablet 00:00: 00:00 mouth at [place] 00 :00 bedtime. Medical Branch dextroamphe 2019- No [id number] 30mg Take 1 [facility] tamine-amph 8-10 09-08 tablet by it y of etamine 30 00:00: 00:00 mouth 2 [place] mg tablet 00 :00 (two) Medical times Branch daily. Take one tablet each morning and one tablet after lunch at school. dextroamphe 2019-0 Yes [id number] 30mg Take 1 [facility] tamine-amph 7-07 tablet by [facility] [place] 30 00:00: mouth [place] tablet 00 (two) Medical times [facility] daily. Take one tablet each morning and one tablet after lunch at school. cloNIDine 2019-0 Yes [id number] .3mg Take 1 [facility] nivers 0.3 mg 7-07 tablet by ity of tablet 00:00: mouth at [place] 00 bedtime. Medical Branch dextroamphe 2019- No [id number] 30mg Take 1 [facility] tamine-amph 7-07 08-10 tablet by it y of etamine 30 00:00: 00:00 mouth 2 [place] [facility] mg tablet 00 :00 (two) Medical times Branch daily. Take one tablet each morning and one tablet after lunch at school. cloNIDine 2019-2019- No [id number] .3mg Take 1 [facility] 0.3 mg 7-07 08-10 tablet by ity of tablet 00:00: 00:00 mouth at [place] 00 :00 bedtime. Medical Branch dextroamphe 2020-0 Yes [id number] 30mg Take 1 [facility] tamine-amph 6-08 tablet by [facility] etamine 30 00:00: mouth 2 [place] mg tablet 00 (two) Medical times [facility] daily. Take one tablet each morning and one tablet after lunch at school. cloNIDine 2020-0 Yes [id number] .3mg Take 1 [facility] nivers 0.3 mg 6-08 tablet by ity of tablet 00:00: mouth at [place] 00 bedtime. Medical Branch dextroamphe 2020-0 Yes [id number] 30mg Take 1 [facility] tamine-amph 6-08 tablet by [facility] etamine 30 00:00: mouth [place] mg tablet 00 (two) Medical times [facility] daily. Take one tablet each morning and one tablet after lunch at school. cloNIDine 2020-0 Yes [id number] .3mg Take 1 [facility] n[facility] 0.3 mg 6-08 tablet by ity of tablet 00:00: mouth at [place] 00 bedtime. Medical Branch dextroamphe 2020-0 Yes [id number] 30mg Take 1 [facility] tamine-amph 6-08 tablet by [facility] etamine 30 00:00: mouth [place] tablet 00 (two) Medical times [facility] daily. Take one tablet each morning and one tablet after lunch at school. cloNIDine 2020-0 Yes [id number] .3mg Take 1 [facility] nivers 0.3 mg 6-08 tablet by ity of tablet 00:00: mouth at [place] 00 bedtime. Medical Branch dextroamphe 2020-0 Yes [id number] 30mg Take 1 [facility] tamine-amph 6-08 tablet by [facility] etamine 30 00:00: mouth [place] mg tablet 00 (two) Medical times Branch daily. Take one tablet each morning and one tablet after lunch at school. cloNIDine 2020-0 Yes [id number] .3mg Take 1 [facility] n[facility] 0.3 mg 6-08 tablet by ity of tablet 00:00: mouth at [place] 00 bedtime. Medical Branch dextroamphe 2020-0 2020- No [id number] 30mg Take 1 [facility] tamine-amph 6-08 07-07 tablet by it y of etamine 30 00:00: 00:00 mouth 2 [facility] mg tablet 00 :00 (two) Medical times Branch daily. Take one tablet each morning and one tablet after lunch at school. cloNIDine 2020-0 2020- No [id number] .3mg Take 1 [facility] 0.3 mg 6-08 07-07 tablet by ity of tablet 00:00: 00:00 mouth at [place] 00 :00 bedtime. Medical Branch dextroamphe 2020-0 Yes [id number] 30mg Take 1 [facility] tamine-amph 5-08 tablet by [facility] etamine 30 00:00: mouth 2 [place] mg tablet 00 (two) Medical times [facility] daily. Take one tablet each morning and one tablet after lunch at school. dextroamphe 2020-0 Yes [id number] 30mg Take 1 [facility] tamine-amph 5-08 tablet by [facility] etamine 30 00:00: mouth 2 [place] mg tablet 00 (two) Medical times [facility] daily. Take one tablet each morning and one tablet after lunch at school. dextroamphe 2020-0 2020- No [id number] 30mg Take 1 [facility] tamine-amph 5-08 06-08 tablet by it y of etamine 30 00:00: 00:00 mouth 2 [place] mg tablet 00 :00 (two) Medical times Branch daily. Take one tablet each morning and one tablet after lunch at school. dextroamphe 2020-0 Yes [id number] 30mg Take 1 [facility] tamine-amph 4-06 tablet by [facility] etamine 30 00:00: mouth 2 [place] mg tablet 00 (two) Medical times [facility] daily. Take one tablet each morning and one tablet after lunch at school. cloNIDine 2020-0 Yes [id number] .3mg Take 1 [facility] n[facility] 0.3 mg 4-06 tablet by ity of tablet 00:00: mouth at [place] 00 bedtime. Medical Branch cloNIDine 2020-0 Yes [id number] .3mg Take 1 [facility] n[facility] 0.3 mg 4-06 tablet by ity of tablet 00:00: mouth at [place] 00 bedtime. Medical Branch cloNIDine 2020-0 Yes [id number] .3mg Take 1 [facility] 0.3 mg 4-06 tablet by ity of tablet 00:00: mouth at [place] 00 bedtime. Medical Branch cloNIDine 2020-0 2020- No [id number] .3mg Take 1 [facility] 0.3 mg 4-06 06-08 tablet by ity of tablet 00:00: 00:00 mouth at [place] 00 :00 bedtime. Medical Branch dextroamphe 2020-0 2020- No [id number] 30mg Take 1 [facility] tamine-amph 4-06 05-08 tablet by it y of etamine 30 00:00: 00:00 mouth 2 [place] mg tablet 00 :00 (two) Medical times Branch daily. Take one tablet each morning and one tablet after lunch at school. dextroamphe 2020-0 Yes [id number] 30mg Take 1 [facility] tamine-amph 3-09 tablet by [facility] etamine 30 00:00: mouth 2 [place] mg tablet 00 (two) Medical times Branch daily. Take one tablet each morning and one tablet after lunch at school. dextroamphe 2020-0 Yes [id number] 30mg Take 1 [facility] tamine-amph 3-09 tablet by [facility] etamine 30 00:00: mouth 2 [place] mg tablet 00 (two) Medical times [facility] daily. Take one tablet each morning and one tablet after lunch at school. dextroamphe 2020-0 2020- No [id number] 30mg Take 1 [facility] tamine-amph 3-09 -06 tablet by it y of etamine 30 00:00: 00:00 mouth 2 [place] [facility] tablet 00 :00 (two) Medical times Branch daily. Take one tablet each morning and one tablet after lunch at school. dextroamphe 2020-0 2020- No [id number] 30mg Take 1 [facility] tamine-amph 3-09 -06 tablet by it y of etamine 30 00:00: 00:00 mouth 2 [place] [facility] mg tablet 00 :00 (two) Medical times Branch daily. Take one tablet each morning and one tablet after lunch at school. cloNIDine 2020-0 Yes [id number] .3mg Take 1 [facility] n[facility] 0.3 mg 2-18 tablet by ity of tablet 00:00: mouth at [place] [address] bedtime. Medical Branch cloNIDine 2020-0 Yes [id number] .3mg Take 1 [facility] nivers 0.3 mg 2-18 tablet by ity of tablet 00:00: mouth at [place] [address] bedtime. Medical Branch cloNIDine 2020-0 Yes [id number] .3mg Take 1 [facility] n[facility] 0.3 mg 2-18 tablet by ity of tablet 00:00: mouth at [place] 00 bedtime. Medical Branch cloNIDine 2020-0 Yes [id number] .3mg Take 1 [facility] 0.3 mg 2-18 tablet by ity of tablet 00:00: mouth at [place] [address] bedtime. Medical Branch cloNIDine 2020-0 Yes [id number] .3mg Take 1 [facility] n[facility] 0.3 mg 2-18 tablet by ity of tablet 00:00: mouth at [place] 00 bedtime. Medical Branch cloNIDine 2020-0 Yes [id number] .3mg Take 1 [facility] 0.3 mg 2-18 tablet by ity of tablet 00:00: mouth at [place] 00 bedtime. Medical Branch cloNIDine 2019-0 2020- No [id number] .3mg Take 1 [facility] 0.3 mg 2-18 04-06 tablet by ity of tablet 00:00: 00:00 mouth at [place] 00 :00 bedtime. Medical Branch cloNIDine 2019-0 2020- No [id number] .3mg Take 1 [facility] 0.3 mg 2-18 04-06 tablet by ity of tablet 00:00: 00:00 mouth at [place] 00 :00 bedtime. Medical Branch dextroamphe 2020-0 Yes [id number] 30mg Take 1 [facility] tamine-amph 2-04 tablet by [facility] [place]amine 30 00:00: mouth 2 [place] mg tablet 00 (two) Medical times Branch daily. Take one tablet each morning and one tablet after lunch at school. dextroamphe 2020-0 Yes [id number] 30mg Take 1 [facility] tamine-amph 2-04 tablet by [facility] [place]amine 30 00:00: mouth 2 [place] mg tablet 00 (two) Medical times Branch daily. Take one tablet each morning and one tablet after lunch at school. dextroamphe 2020-0 Yes [id number] 30mg Take 1 [facility] tamine-amph 2-04 tablet by [facility] of [place]amine 30 00:00: mouth 2 [place] mg tablet 00 (two) Medical times Branch daily. Take one tablet each morning and one tablet after lunch at school. dextroamphe 2020-0 Yes [id number] 30mg Take 1 [facility] tamine-amph 2-04 tablet by [facility] of [place]amine 30 00:00: mouth 2 [place] mg tablet 00 (two) Medical times Branch daily. Take one tablet each morning and one tablet after lunch at school. dextroamphe 2020-0 Yes [id number] 30mg Take 1 [facility] tamine-amph 2-04 tablet by [facility] of [place]amine 30 00:00: mouth 2 [place] mg tablet 00 (two) Medical times Branch daily. Take one tablet each morning and one tablet after lunch at school. dextroamphe 2020-0 2020- No [id number] 30mg Take 1 [facility] tamine-amph 2-04 03-09 tablet by it y of etamine 30 00:00: 00:00 mouth 2 [place] mg tablet 00 :00 (two) Medical times Branch daily. Take one tablet each morning and one tablet after lunch at school. dextroamphe 2019- No [id number] 30mg Take 1 [facility] tamine-amph 1-02 19-04 tablet by it y of etamine 30 00:00: 00:00 mouth 2 [facility] mg tablet 00 :00 (two) Medical times Branch daily. Take one tablet each morning and one tablet after lunch at school. cetirizine 2018-08 Yes [id number] 10mg Take 1 U nivers 10 mg 1-06 tablet by ity of tablet 00:00: mouth [place] 00 daily. [facility] Branch cetirizine 2018-08 Yes [id number] 10mg Take 1 U nivers 10 mg 1-06 tablet by ity of tablet 00:00: mouth [place] 00 daily. [facility] Branch cetirizine 2018-08 Yes [id number] 10mg Take 1 U nivers 10 mg 1-06 tablet by ity of tablet 00:00: mouth [place] 00 daily. [facility] Branch cetirizine 2018-08 Yes [id number] 10mg Take 1 U nivers 10 mg 1-06 tablet by ity of tablet 00:00: mouth [place] 00 daily. [facility] Branch cetirizine 2018-08 Yes [id number] 10mg Take 1 U nivers 10 mg 1-06 tablet by ity of tablet 00:00: mouth [place] 00 daily. [facility] Branch cetirizine 2018-08 Yes [id number] 10mg Take 1 U nivers 10 mg 1-06 tablet by ity of tablet 00:00: mouth [place] 00 daily. [facility] Branch cetirizine 2018-08 Yes [id number] 10mg Take 1 U nivers 10 mg 1-06 tablet by ity of tablet 00:00: mouth [place] 00 daily. [facility] Branch cetirizine 2018-08 Yes [id number] 10mg Take 1 U nivers 10 mg 1-06 tablet by ity of tablet 00:00: mouth [place] 00 daily. [facility] Branch cetirizine 2018-08 Yes [id number] 10mg Take 1 U nivers 10 mg 1-06 tablet by ity of tablet 00:00: mouth [place] 00 daily. Medical Branch cetirizine 2018-08 Yes [id number] 10mg Take 1 U nivers 10 mg 1-06 tablet by ity of tablet 00:00: mouth [place] 00 daily. Medical Branch cloNIDine 2018-08 Yes [id number] .2mg Take 1 U nivers 0.2 mg 1-06 tablet by ity of tablet 00:00: mouth at [place] 00 bedtime. Medical Branch cetirizine 2018-08 Yes [id number] 10mg Take 1 [facility] nivers 10 mg 1-06 tablet by ity of tablet 00:00: mouth [place] 00 daily. Medical Branch cetirizine 2018-08 Yes [id number] 10mg Take 1 [facility] nivers 10 mg 1-06 tablet by ity of tablet 00:00: mouth [place] 00 daily. Medical Branch cetirizine 2018-08 Yes [id number] 10mg Take 1 [facility] nivers 10 mg 1-06 tablet by ity of tablet 00:00: mouth [place] 00 daily. Medical Branch cetirizine 2018-08 2020- No [id number] 10mg Take 1 [facility] 10 mg 1-06 06-17 tablet by ity of tablet 00:00: 00:00 mouth [place] 00 :00 daily. Medical Branch cetirizine 2018-08 2020- No [id number] 10mg Take 1 [facility] 10 mg 1-06 06-17 tablet by ity of tablet 00:00: 00:00 mouth [place] 00 :00 daily. Medical Branch cloNIDine 2018-08 2020- No [id number] .2mg Take 1 [facility] 0.2 mg 1-06 02-18 tablet by ity of tablet 00:00: 00:00 mouth at [place] 00 :00 bedtime. Medical Branch cloNIDine 2018-08 2020- No [id number] .2mg Take 1 [facility] 0.2 mg 1-06 02-18 tablet by ity of tablet 00:00: 00:00 mouth at [place] 00 :00 bedtime. Medical Branch diphenhydrA 2019- No 50mg Unive rs MINE 05-02 ity of (BENADRYL) 15:15: 14:24 [place] injection 00 :00 Medical 50 mg Branch diphenhydrA 2018- No 50mg 50 mg, Uni vers MINE 05-02 Intramuscu ity of (BENADRYL) 15:15: 14:24 [place], ONCE [place] injection 00 :[place] NOW, 1 Medical 50 mg dose, [facility] Branch 05/02/19 at 1015, Routine diphenhydrA 2019- No 50mg Unive rs [facility] 05-02 ity of (BENADRYL) 15:15: 14:24 [place] injection 00 :00 Medical 50 mg Branch diphenhydrA 2019- No 50mg 50 mg, Uni vers [facility] 05-02 Intramuscu ity of (BENADRYL) 15:15: 14:24 [place], ONCE [place] injection 00 :00 NOW, 1 Medical 50 mg dose, [facility] Branch 05/02/19 at 1015, Routine azithromyci Yes [id number] 250mg Take 1 [facility] n 05-02 tablet by ity of (ZITHROMAX 00:00: mouth [place] Z-SUSANA) 250 00 daily. Medical mg tablet Take 500 Branch mg day 1, then 250 mg days 2 to 5. clarithromy 2019- No [id number] 500mg Take 1 [facility] yumiko 05-02 tablet by ity of (BIAXIN) 00:00: 04:59 mouth [place] 500 mg 00 :00 every 12 Medical tablet (twelve) Branch hours for 10 days. clarithromy 2019- No [id number] 500mg Take 1 [facility] yumiko 05-02 tablet by ity of (BIAXIN) 00:00: 04:59 mouth [place] 500 mg 00 :00 every 12 Medical tablet (twelve) Branch hours for 10 days. clarithromy 2019- No [id number] 500mg Take 1 [facility] yumiko -05-13 tablet by ity of (BIAXIN) 00:00: 04:59 mouth [place] 500 mg 00 :00 every 12 Medical tablet (twelve) Branch hours for 10 days. clarithromy 2019- No [id number] 500mg Take 1 [facility] yumiok -05-02 tablet by ity of (BIAXIN) 00:00: 00:00 mouth [place] 500 mg 00 :00 every 12 Medical tablet (twelve) Branch hours for 10 days. cloNIDine 2018- Yes [id number] .1mg Take 1 U nivers 0.1 mg 9- tablet by ity of tablet 00:00: mouth at [place] 00 bedtime. Medical Branch cloNIDine 2019-0 Yes [id number] .1mg Take 1 U nivers 0.1 mg 9-11 tablet by ity of tablet 00:00: mouth at [place] [address] bedtime. Medical Branch cloNIDine 2019-0 Yes [id number] .1mg Take 1 U nivers 0.1 mg 9-11 tablet by ity of tablet 00:00: mouth at [place] [address] bedtime. Medical Branch cloNIDine 2018-0 Yes [id number] .1mg Take 1 U nivers 0.1 mg 9-11 tablet by ity of tablet 00:00: mouth at [place] [address] bedtime. Medical Branch cloNIDine 2018-0 Yes [id number] .1mg Take 1 U nivers 0.1 mg 9-11 tablet by ity of tablet 00:00: mouth at [place] [address] bedtime. Medical Branch cloNIDine 2018-0 Yes [id number] .1mg Take 1 U nivers 0.1 mg 9-11 tablet by ity of tablet 00:00: mouth at [place] [address] bedtime. Medical Branch cloNIDine 2018-0 Yes [id number] .1mg Take 1 U nivers 0.1 mg 9-11 tablet by ity of tablet 00:00: mouth at [place] [address] bedtime. Medical Branch cloNIDine 2019-0 Yes [id number] .1mg Take 1 U nivers 0.1 mg 9-11 tablet by ity of tablet 00:00: mouth at [place] [address] bedtime. Medical Branch cloNIDine 2018-0 Yes [id number] .1mg Take 1 U nivers 0.1 mg 9-11 tablet by ity of tablet 00:00: mouth at [place] [address] bedtime. Medical Branch cefdinir 2019- No [id number] 300mg Take 1 U nivers 300 mg 9-05-12 capsule by ity of capsule 00:00: 04:59 mouth 2 [place] 00 :00 (two) Medical times Branch daily for 10 days. cefdinir 2018- 2019- No [id number] 300mg Take 1 U nivers 300 mg 9-11 05-12 capsule by ity of capsule 00:00: 04:59 mouth 2 [place] 00 :00 (two) Medical times Branch daily for 10 days. cefdinir 2018- 2019- No [id number] 300mg Take 1 U nivers 300 mg 9-11 05-12 capsule by ity of capsule 00:00: 04:59 mouth 2 [place] 00 :00 (two) Medical times Branch daily for 10 days. cefdinir 2019- No [id number] 300mg Take 1 U nivers 300 mg 05-01 capsule by ity of capsule 00:00: 04:59 mouth 2 [place] 00 :00 (two) Medical times Branch daily for 10 days. cefdinir 2019- No [id number] 300mg Take 1 U nivers 300 mg 05-01 capsule by ity of capsule 00:00: 04:59 mouth 2 [place] 00 :00 (two) Medical times Branch daily for 10 days. cefdinir 2019- No [id number] 300mg Take 1 U nivers 300 mg 05-01 capsule by ity of capsule 00:00: 00:00 mouth 2 [place] 00 :00 (two) Medical times Branch daily for 10 days. cefdinir 2019- No [id number] 300mg Take 1 U nivers 300 mg 05-01 capsule by ity of capsule 00:00: 00:00 mouth 2 [place] 00 :00 (two) Medical times Branch daily for 10 days. dextroamphe Yes [id number] 30mg Take 1 [facility] tamine-amph 9-05 tablet by ity of etamine 30 00:00: mouth [place] mg tablet 00 daily. Medical Take this Branch dose after lunch at school. amphetamine 2018- Yes [id number] Take one [facility] -dextroamph 9-05 capsule PO it y of etamine 30 00:00: each [place] mg 24 hr 00 morning Medical capsule Branch dextroamphe 2018-0 Yes [id number] 30mg Take 1 [facility] tamine-amph 9-05 tablet by ity of etamine 30 00:00: mouth [place] mg tablet 00 daily. Medical Take this Branch dose after lunch at school. amphetamine 2018- Yes [id number] Take one [facility] -dextroamph 9-05 capsule PO it y of etamine 30 00:00: each [place] mg 24 hr 00 morning Medical capsule Branch dextroamphe 2018- Yes [id number] 30mg Take 1 [facility] tamine-amph 9-05 tablet by ity of etamine 30 00:00: mouth [place] mg tablet 00 daily. Medical Take this Branch dose after lunch at school. amphetamine 2019- Yes [id number] Take one [facility] -dextroamph 9-05 capsule PO it y of etamine 30 00:00: each [place] mg 24 hr 00 morning Medical capsule Branch dextroamphe 20190 Yes [id number] 30mg Take 1 [facility] tamine-amph 9-05 tablet by ity of etamine 30 00:00: mouth [place] mg tablet 00 daily. Medical Take this Branch dose after lunch at school. amphetamine Yes [id number] Take one [facility] -dextroamph 9-05 capsule PO it y of etamine 30 00:00: each [place] mg 24 hr 00 morning Medical capsule Branch dextroamphe Yes [id number] 30mg Take 1 [facility] tamine-amph 9-05 tablet by ity of etamine 30 00:00: mouth [place] mg tablet 00 daily. Medical Take this Branch dose after lunch at school. amphetamine Yes [id number] Take one [facility] -dextroamph 9-05 capsule PO it y of etamine 30 00:00: each [place] mg 24 hr 00 morning Medical capsule Branch dextroamphe Yes [id number] 30mg Take 1 [facility] tamine-amph 9-05 tablet by ity of etamine 30 00:00: mouth [place] mg tablet 00 daily. Medical Take this Branch dose after lunch at school. amphetamine Yes [id number] Take one [facility] -dextroamph 9-05 capsule PO it y of etamine 30 00:00: each [place] mg 24 hr 00 morning Medical capsule Branch dextroamphe 0 Yes [id number] 30mg Take 1 [facility] tamine-amph 9-05 tablet by ity of etamine 30 00:00: mouth [place] mg tablet 00 daily. Medical Take this Branch dose after lunch at school. amphetamine Yes [id number] Take one [facility] -dextroamph 9-05 capsule PO it y of etamine 30 00:00: each [place] mg 24 hr 00 morning Medical capsule Branch dextroamphe Yes [id number] 30mg Take 1 [facility] tamine-amph 9-05 tablet by ity of etamine 30 00:00: mouth [place] mg tablet 00 daily. Medical Take this Branch dose after lunch at school. amphetamine Yes [id number] Take one [facility] -dextroamph 9-05 capsule PO it y of etamine 30 00:00: each [place] mg 24 hr 00 morning Medical capsule Branch dextroamphe Yes [id number] 30mg Take 1 [facility] tamine-amph 9-05 tablet by ity of etamine 30 00:00: mouth [place] mg tablet 00 daily. Medical Take this Branch dose after lunch at school. amphetamine Yes [id number] Take one [facility] -dextroamph 9-05 capsule PO it y of etamine 30 00:00: each [place] mg 24 hr 00 morning Medical capsule Branch dextroamphe Yes [id number] 30mg Take 1 [facility] tamine-amph 9-05 tablet by ity of etamine 30 00:00: mouth [place] mg tablet 00 daily. Medical Take this Branch dose after lunch at school. amphetamine Yes [id number] Take one [facility] -dextroamph 9-05 capsule PO it y of etamine 30 00:00: each [place] mg 24 hr 00 morning Medical capsule Branch amphetamine Yes [id number] Take one [facility] -dextroamph 8-09 capsule PO it y of etamine 30 00:00: each [place] mg 24 hr 00 morning Medical capsule Branch dextroamphe Yes [id number] 30mg Take 1 [facility] tamine-amph 8-09 tablet by ity of etamine 30 00:00: mouth [place] mg tablet 00 daily. Medical Take this Branch dose after lunch at school. amphetamine 2019- No [id number] Take one [facility] -dextroamph 8-09 09-05 capsule PO i ty of etamine 30 00:00: 00:00 each [place] mg 24 hr 00 :00 morning Medical capsule Branch dextroamphe 2019- No [id number] 30mg Take 1 [facility] tamine-amph 8-09 09-05 tablet by it y of etamine 30 00:00: 00:00 mouth [place] mg tablet 00 :00 daily. Medical Take this Branch dose after lunch at school. amphetamine 2019- No [id number] Take one [facility] -dextroamph 8-08 08-09 capsule PO i ty of etamine 30 00:00: 00:00 each [place] mg 24 hr 00 :00 morning Medical capsule Branch dextroamphe 2019- No [id number] 30mg Take 1 [facility] tamine-amph 8-08 08-09 tablet by it y of etamine 30 00:00: 00:00 mouth [place] mg tablet 00 :00 daily. Medical Take this Branch dose after lunch at school. amphetamine 2019- No [id number] Take one [facility] -dextroamph 03-28- capsule PO i ty of etamine 30 00:00: 00:00 each [place] mg 24 hr 00 :00 morning Medical capsule Branch dextroamphe 2018- No [id number] 30mg Take 1 [facility] tamine-amph 03-28 tablet by it y of etamine 30 00:00: 00:00 mouth [place] mg tablet 00 :00 daily. Medical Take this Branch dose after lunch at school. amphetamine 2018- No [id number] Take one [facility] -dextroamph 03-28- capsule PO i ty of etamine 30 00:00: 00:00 each [place] mg 24 hr 00 :00 morning Medical capsule Branch dextroamphe 2018- No [id number] 30mg Take 1 [facility] tamine-amph 03-28 tablet by it y of etamine 30 00:00: 00:00 mouth [place] mg tablet 00 :00 daily. Medical Take this Branch dose after lunch at school. amphetamine 2018- No [id number] Take one [facility] -dextroamph 03-28- capsule PO i ty of etamine 30 00:00: 00:00 each [place] mg 24 hr 00 :00 morning Medical capsule Branch dextroamphe 2018- No [id number] 30mg Take 1 [facility] tamine-amph 03-28 tablet by it y of etamine 30 00:00: 00:00 mouth [place] mg tablet 00 :00 daily. Medical Take this Branch dose after lunch at school. amphetamine 2018- No [id number] Take one [facility] -dextroamph 03-28- capsule PO i ty of etamine 30 00:00: 00:00 each [place] mg 24 hr 00 :00 morning Medical capsule Branch dextroamphe 2019- No [id number] 30mg Take 1 [facility] tamine-amph 03-28 tablet by it y of etamine 30 00:00: 00:00 mouth [place] mg tablet 00 :00 daily. Medical Take this Branch dose after lunch at school. amphetamine 2018- No [id number] Take one [facility] -dextroamph 03-28- capsule PO i ty of etamine 30 00:00: 00:00 each [place] mg 24 hr 00 :00 morning Medical capsule Branch dextroamphe 2018- No [id number] 30mg Take 1 [facility] tamine-amph -03 28-08 tablet by it y of etamine 30 00:00: 00:00 mouth [place] mg tablet 00 :00 daily. Medical Take this Branch dose after lunch at school. amphetamine 2018- No [id number] Take one [facility] -dextroamph 8-03 28-08 capsule PO i ty of etamine 30 00:00: 00:00 each [place] mg 24 hr 00 :00 morning Medical capsule Branch dextroamphe 2018- No [id number] 30mg Take 1 [facility] tamine-amph -03 28-08 tablet by it y of etamine 30 00:00: 00:00 mouth [place] mg tablet 00 :00 daily. Medical Take this Branch dose after lunch at school. amphetamine 2018- No [id number] Take one [facility] -dextroamph -03 28-08 capsule PO i ty of etamine 30 00:00: 00:00 each [place] mg 24 hr 00 :00 morning Medical capsule Branch dextroamphe 2018- No [id number] 30mg Take 1 [facility] tamine-amph 03-28- tablet by it y of etamine 30 00:00: 00:00 mouth [place] mg tablet 00 :00 daily. Medical Take this Branch dose after lunch at school. amphetamine 2018- No [id number] Take one [facility] -dextroamph -03 28-08 capsule PO i ty of etamine 30 00:00: 00:00 each [place] mg 24 hr 00 :00 morning Medical capsule Branch dextroamphe 2018- No [id number] 30mg Take 1 [facility] tamine-amph -03 28-08 tablet by it y of etamine 30 00:00: 00:00 mouth [place] mg tablet 00 :00 daily. Medical Take this Branch dose after lunch at school. amphetamine 2018- No [id number] Take one [facility] -dextroamph -08 -08 capsule PO i ty of etamine 30 00:00: 00:00 each [place] mg 24 hr 00 :00 morning Medical capsule Branch dextroamphe 2018- No [id number] 30mg Take 1 [facility] tamine-amph 8-03 28-08 tablet by it y of etamine 30 00:00: 00:00 mouth [place] mg tablet 00 :00 daily. Medical Take this Branch dose after lunch at school. amphetamine 2018- No [id number] Take one Univers -dextroamph 03-28 capsule PO i ty of etamine 30 00:00: 00:00 each [place] mg 24 hr 00 :00 morning Medical capsule Branch dextroamphe 2019- No [id number] 30mg Take 1 Univers tamine-amph 03-28 tablet by it y of etamine 30 00:00: 00:00 mouth [place] mg tablet 00 :00 daily. Medical Take this Branch dose after lunch at school. amphetamine 2019- No [id number] Take one Univers -dextroamph 03-28 capsule PO i ty of etamine 30 00:00: 00:00 each [place] mg 24 hr 00 :00 morning Medical capsule Branch dextroamphe 2018- No [id number] 30mg Take 1 Univers tamine-amph 03-28 tablet by it y of etamine 30 00:00: 00:00 mouth [place] mg tablet 00 :00 daily. Medical Take this Branch dose after lunch at school. amphetamine 2018- No [id number] Take one Univers -dextroamph 03-28 capsule PO i ty of etamine 30 00:00: 00:00 each [place] mg 24 hr 00 :00 morning Medical capsule Branch dextroamphe 2019- No [id number] 30mg Take 1 Univers tamine-amph 03-28 tablet by it y of etamine 30 00:00: 00:00 mouth [place] mg tablet 00 :00 daily. Medical Take this Branch dose after lunch at school. cloNIDine Yes [id number] .1mg Take 1 U nivers 0.1 mg 7-19 tablet by ity of tablet 00:00: mouth at [place] 00 bedtime. Medical Branch cloNIDine Yes [id number] .1mg Take 1 U nivers 0.1 mg 7-19 tablet by ity of tablet 00:00: mouth at [place] 00 bedtime. Medical Branch cloNIDine Yes [id number] .1mg Take 1 U nivers 0.1 mg 7-19 tablet by ity of tablet 00:00: mouth at [place] 00 bedtime. Medical Branch cloNIDine Yes [id number] .1mg Take 1 U nivers 0.1 mg 7-19 tablet by ity of tablet 00:00: mouth at [place] 00 bedtime. Medical Branch cloNIDine Yes [id number] .1mg Take 1 U nivers 0.1 mg 7-19 tablet by ity of tablet 00:00: mouth at [place] 00 bedtime. Medical Branch cloNIDine Yes [id number] .1mg Take 1 U nivers 0.1 mg 7-19 tablet by ity of tablet 00:00: mouth at [place] 00 bedtime. Medical Branch cloNIDine Yes [id number] .1mg Take 1 U nivers 0.1 mg 7-19 tablet by ity of tablet 00:00: mouth at [place] 00 bedtime. Medical Branch cloNIDine Yes [id number] .1mg Take 1 U nivers 0.1 mg 7-19 tablet by ity of tablet 00:00: mouth at [place] 00 bedtime. Medical Branch cloNIDine Yes [id number] .1mg Take 1 U nivers 0.1 mg 7-19 tablet by ity of tablet 00:00: mouth at [place] [address] bedtime. Medical Branch cloNIDine 2019- No [id number] .1mg Take 1 Univers 0.1 mg 7-19 09-11 tablet by ity of tablet 00:00: 00:00 mouth at [place] 00 :00 bedtime. Medical Branch cloNIDine 2019- No [id number] .1mg Take 1 Univers 0.1 mg 7-19 09-11 tablet by ity of tablet 00:00: 00:00 mouth at [place] 00 :00 bedtime. Medical Branch amphetamine 2019- No [id number] Take one Univers -dextroamph -03-28 capsule PO i ty of etamine 30 00:00: 00:00 each [place] mg 24 hr 00 :00 morning Medical capsule Branch dextroamphe 2019- No [id number] 30mg Take 1 Univers tamine-amph -03-28 tablet by it y of etamine 30 00:00: 00:00 mouth [place] mg tablet 00 :00 daily. Medical Take this Branch dose after lunch at school. amphetamine 2019- No [id number] Take one Univers -dextroamph -03-28 capsule PO i ty of etamine 30 00:00: 00:00 each [place] mg 24 hr 00 :00 morning Medical capsule Branch dextroamphe 2019- No [id number] 30mg Take 1 Univers tamine-amph 7-03 08-08 tablet by it y of etamine 30 00:00: 00:00 mouth [place] mg tablet 00 :00 daily. Medical Take this Branch dose after lunch at school. amphetamine 2018- No [id number] Take one Univers -dextroamph 7-03 08-08 capsule PO i ty of etamine 30 00:00: 00:00 each [place] mg 24 hr 00 :00 morning Medical capsule Branch dextroamphe 2018- No [id number] 30mg Take 1 Univers tamine-amph 7-03 08-08 tablet by it y of etamine 30 00:00: 00:00 mouth [place] mg tablet 00 :00 daily. Medical Take this Branch dose after lunch at school. amphetamine 2018- No [id number] Take one Univers -dextroamph 7-03 08-08 capsule PO i ty of etamine 30 00:00: 00:00 each [place] mg 24 hr 00 :00 morning Medical capsule Branch dextroamphe 2018- No [id number] 30mg Take 1 Univers tamine-amph 7-10 26-08 tablet by it y of etamine 30 00:00: 00:00 mouth [place] mg tablet 00 :00 daily. Medical Take this Branch dose after lunch at school. amphetamine 2018- No [id number] Take one Univers -dextroamph 7-03 08-08 capsule PO i ty of etamine 30 00:00: 00:00 each [place] mg 24 hr 00 :00 morning Medical capsule Branch dextroamphe 2018- No [id number] 30mg Take 1 Univers tamine-amph 7-03 08-08 tablet by it y of etamine 30 00:00: 00:00 mouth [place] mg tablet 00 :00 daily. Medical Take this Branch dose after lunch at school. amphetamine 2018- No [id number] Take one Univers -dextroamph 7-03 08-08 capsule PO i ty of etamine 30 00:00: 00:00 each [place] mg 24 hr 00 :00 morning Medical capsule Branch dextroamphe 2018- No [id number] 30mg Take 1 Univers tamine-amph 7-03 08-08 tablet by it y of etamine 30 00:00: 00:00 mouth [place] mg tablet 00 :00 daily. Medical Take this Branch dose after lunch at school. amphetamine 2018- No [id number] Take one [facility] -dextroamph 02-20 capsule PO i ty of etamine 30 00:00: 00:00 each [place] mg 24 hr 00 :00 morning Medical capsule Branch dextroamphe 2019- No [id number] 30mg Take 1 [facility] tamine-amph 02-20 tablet by it y of etamine 30 00:00: 00:00 mouth [place] mg tablet 00 :00 daily. Medical Take this Branch dose after lunch at school. Vital Signs Vital Name Observation Time Observation Value Comments Source Systolic blood 2021-04-01 18:40:00 143 mm[Hg] Univer sity of [facility] Diastolic blood 2021-04-01 18:40:00 82 mm[Hg] Unive rsity of [facility] Heart rate 2021-04-01 18:40:00 69 /min Universi ty of [facility] Body temperature 2021-04-01 18:40:00 36.72 [facility] Respiratory rate 2021-04-01 18:40:00 18 /min [facility] Body height 2021-04-01 18:40:00 177.8 cm [facility] Body weight 2021-04-01 18:40:00 78.608 kg Universi ty of [facility] BMI 2021-04-01 18:40:00 24.87 kg/m2 [facility] ty [facility] Oxygen saturation in 2021-04-01 18:40:00 98 /min [facility] Arterial blood by [facility] Pulse oximetry Branch Systolic blood 2020-11-12 17:55:00 162 mm[Hg] Univer sity of [facility] Diastolic blood 2020-11-12 17:55:00 94 mm[Hg] Unive rsity of [facility] Heart rate 2020-11-12 17:55:00 71 /min Universi ty of [facility] Body temperature 2020-11-12 17:55:00 36.56 Paty [facility] Respiratory rate 2020-11-12 17:55:00 18 /min [facility] Body height 2020-11-12 17:55:00 175.3 cm Universi ty of [facility] Body weight 2020-11-12 17:55:00 84.188 kg Universi ty of [place] [facility] BMI 2020-11-12 17:55:00 27.41 kg/m2 Universi ty of [place] [facility] Oxygen saturation in 2020-11-12 17:55:00 100 /min University of Arterial blood by [facility] Pulse oximetry Branch Systolic blood 2020-11-12 17:55:00 162 mm[Hg] Univer sity of [facility] [place] [facility] Diastolic blood 2020-11-12 17:55:00 94 mm[Hg] Unive rsity of [facility] [place] [facility] Heart rate 2020-11-12 17:55:00 71 /min Universi ty [facility] [place] [facility] Body temperature 2020-11-12 17:55:00 36.56 Paty Univ ersity of [place] [facility] Respiratory rate 2020-11-12 17:55:00 18 /min Univ ersity of [place] [facility] Body height 2020-11-12 17:55:00 175.3 cm Universi ty [facility] [place] [facility] Body weight 2020-11-12 17:55:00 84.188 kg Universi ty of [place] [facility] BMI 2020-11-12 17:55:00 27.41 kg/m2 Universi ty of [place] [facility] Oxygen saturation in 2020-11-12 17:55:00 100 /min University of Arterial blood by [facility] Pulse oximetry Branch Systolic blood 2020-05-07 19:57:00 126 mm[Hg] Univer sity of [facility] [place] [facility] Diastolic blood 2020-05-07 19:57:00 77 mm[Hg] Unive rsity of [facility] [place] [facility] Heart rate 2020-05-07 19:57:00 67 /min Universi ty of [place] [facility] Body temperature 2020-05-07 19:57:00 36.72 Paty Univ ersity of [place] [facility] Respiratory rate 2020-05-07 19:57:00 18 /min Univ ersity of [place] [facility] Body weight 2020-05-07 19:57:00 92.08 kg Universi ty [facility] [place] [facility] Oxygen saturation in 2020-05-07 19:57:00 99 /min University of Arterial blood by [facility] Pulse oximetry Branch Systolic blood 2020-02-05 18:31:00 110 mm[Hg] Univer sity of [facility] [place] [facility] Diastolic blood 2020-02-05 18:31:00 64 mm[Hg] Unive rsity of [facility] [place] [facility] Heart rate 2020-02-05 18:31:00 81 /min Universi ty [facility] [place] [facility] Body temperature 2020-02-05 18:31:00 36.56 Paty Univ ersity of [place] [facility] Respiratory rate 2020-02-05 18:31:00 20 /min Univ ersity of [place] [facility] Body weight 2020-02-05 18:31:00 96.571 kg Universi ty [facility] [place] [facility] Oxygen saturation in 2020-02-05 18:31:00 97 /min University of Arterial blood by [facility] Pulse oximetry Branch Systolic blood 2019-10-08 15:02:00 122 mm[Hg] Univer sity of [facility] [place] [facility] Diastolic blood 2019-10-08 15:02:00 85 mm[Hg] Unive rsity of [facility] [place] [facility] Heart rate 2019-10-08 15:02:00 109 /min Universi ty of [place] [facility] Body temperature 2019-10-08 15:02:00 36.39 Paty Univ ersity of [place] [facility] Respiratory rate 2019-10-08 15:02:00 18 /min Univ ersity of [place] [facility] Body height 2019-10-08 15:02:00 177 cm Universi ty [facility] [place] [facility] Body weight 2019-10-08 15:02:00 84.369 kg Universi ty [facility] [place] [facility] BMI 2019-10-08 15:02:00 26.93 kg/m2 Universi [facility] [place] [facility] Oxygen saturation in 2019-10-08 15:02:00 97 /min University of Arterial blood by [facility] Pulse oximetry Branch Systolic blood 2019-05-02 14:00:00 116 mm[Hg] Univer sity of [facility] [place] [facility] Diastolic blood 2019-05-02 14:00:00 75 mm[Hg] Unive rsity of [facility] [place] [facility] Heart rate 2019-05-02 14:00:00 72 /min Universi ty of [place] [facility] Body temperature 2019-05-02 14:00:00 36.94 Paty Univ ersity of [place] [facility] Respiratory rate 2019-05-02 14:00:00 20 /min Univ ersity of [place] [facility] Body weight 2019-05-02 14:00:00 79.017 kg Universi ty [facility] [place] [facility] BMI 2019-05-02 14:00:00 24.66 kg/m2 Universi ty [facility] [place] [facility] Oxygen saturation in 2019-05-02 14:00:00 99 /min University of Arterial blood by [place] [facility] tricia Pulse oximetry Branch Systolic blood 2019-05-01 16:57:00 117 mm[Hg] Univer sity of [facility] [place] [facility] Diastolic blood 2019-05-01 16:57:00 69 mm[Hg] Unive rsity of [facility] [place] [facility] Heart rate 2019-05-01 16:57:00 66 /min Universi ty of [place] [facility] Body temperature 2019-05-01 16:57:00 36.72 Paty Univ ersity of [place] [facility] Respiratory rate 2019-05-01 16:57:00 18 /min Univ ersity [facility] [place] [facility] Body height 2019-05-01 16:57:00 179 cm Universi ty [facility] [place] [facility] Body weight 2019-05-01 16:57:00 78.926 kg Universi ty [facility] [place] [facility] BMI 2019-05-01 16:57:00 24.63 kg/m2 Universi ty [facility] [place] [facility] Oxygen saturation in 2019-05-01 16:57:00 97 /min University of Arterial blood by [facility] Pulse oximetry Branch Systolic blood 2019-03-28 16:10:00 112 mm[Hg] Univer sity of [facility] [place] [facility] Diastolic blood 2019-03-28 16:10:00 76 mm[Hg] Unive rsity of [facility] [place] [facility] Heart rate 2019-03-28 16:10:00 61 /min Universi ty [facility] [place] [facility] Body temperature 2019-03-28 16:10:00 36.22 Paty Univ ersity of [place] [facility] Respiratory rate 2019-03-28 16:10:00 16 /min Univ ersity [facility] [place] [facility] Body height 2019-03-28 16:10:00 179 cm [facility]i ty [facility] [place] [facility] Body weight 2019-03-28 16:10:00 77.111 kg [facility]i ty [facility] [place] [facility] BMI 2019-03-28 16:10:00 24.07 kg/m2 [facility]i ty [facility] [place] [facility] Oxygen saturation in 2019-03-28 16:10:00 99 /min University of Arterial blood by [facility] Pulse oximetry Branch Systolic blood 2019-03-28 14:57:00 112 mm[Hg] Univer sity of [facility] [place] [facility] Diastolic blood 2019-03-28 14:57:00 76 mm[Hg] Unive rsity of pressure [facility] Heart rate 2019-03-28 14:57:00 61 /min [facility] Body temperature 2019-03-28 14:57:00 36.22 Paty [facility] Respiratory rate 2019-03-28 14:57:00 16 /min [facility] Body height 2019-03-28 14:57:00 179 cm [facility] Body weight 2019-03-28 14:57:00 77.52 kg Universi ty [facility] BMI 2019-03-28 14:57:00 24.19 kg/m2 [facility] Oxygen saturation in 2019-03-28 14:57:00 99 /min [facility] Arterial blood by [facility] Pulse oximetry Branch Procedures Procedure Date / Time Performing Clinician Source Performed [facility] STATEMENT OF PATIENT 2021-04-01 05:01:00 Doctor Unassigned, [facility] FINANCIAL RESPONSIBILITY [facility] CONSENT/REFUSAL FOR 2020-02-05 18:24:12 Doctor Unassigned, [facility] DIAGNOSIS AND TREATMENT [facility] ASSIGNMENT OF BENEFITS 2020-02-05 18:23:57 Doctor Unassigned, [facility] [place] [facility] MENINGOCOCCAL B VACCINE, 2019-03-28 16:39:51 Cony Rutherford Un [facility] OMV, 2 DOSE, IM Medical Branch Encounters Start End Encounter Admission Attending Care Care Encounter Source Date/Time Date/Time Type Type Clinicians Facility Department ID 2021-05-10 2021-05-10 Telephone Hunter ALLASHELL 1.2.840.114 [id number] [facility] 00:00:00 00:00:00 Ortiz Chan [id number] i ty of [place] 4.2.7.2.686 Mtjaime eric Jeff [phone] Oh [facility]ical [facility] 231 Branch Building 2021-04-01 2021-04-01 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 Fely Garcia Lab Main [facility] 1.2.8 40.114 [id number] [facility] 15:55:46 16:10:46 Visit Ortiz Harrison [id number] it[id number] [phone] [place]ical [place] [facility] 353 [facility] 2021-04-01 2021-04-01 Office [facility] 1.2.840.114 [id number] Univers 13:25:06 14:18:43 Visit Ortiz Chan [id number] i [id number] [phone] [place] dical [place] [facility] 044 [facility] 2021-04-01 2021-04-01 Outpatient [facility] [id number] Univers 13:00:00 13:00:00 PETER ity [facility] 2021-04-01 2021-04-01 Orders Doctor ALVIN 1.2.840.114 [id number] Univers 00:00:00 00:00:00 Only Unassigned, [place] 350.1.13.[address] [facility] 4.2.7.2.686 Mt as [phone] [address] 2021-01-06 2021-01-06 Refill [facility] 1.2.840.114 [id number] Univers 00:00:00 00:00:00 Ortiz Chan [id number] i [id number] [phone] Oh dical nal [address] [facility] 2020-12-14 2020-12-14 Refill [facility] 1.2.840.114 [id number] Univers 00:00:00 00:00:00 [facility] [id number] it y of [place] 4.2.7.2.686 [place] Professio [phone] [facility] [address] [facility] 2020-12-14 2020-12-14 Refill [facility] 1.2.840.114 [id number] 00:00:00 00:00:00 [facility] [id number] [place] [id number] Professio [phone] [place] [address] Office [facility] 2020-11-26 2020-11-26 [id number] Univers 14:40:00 14:40:00 ORTIZ caban [facility] 2020-11-26 2020-11-26 [facility] 1.2.840.114 [id number] [facility] 00:00:00 00:00:00 Ortiz Chan [id number] i [id number] [phone] [address] 2020-11-26 2020-11-26 [facility] 1.2.840.114 [id number] 00:00:00 00:00:00 Ortiz Chan [id number] [place] [id number] Professio [phone] [address] 2020-11-20 2020-11-20 Outpatient R [facility] [id number] Univers 15:00:00 15:00:00 ORTIZ caban [facility] 2020-11-20 2020-11-20 [facility] 1.2.840.114 [id number] [facility] 00:00:00 00:00:00 Ortiz Chan [id number] i ty [id number] [phone] [address] 2020-11-20 2020-11-20 [facility] 1.2.840.114 [id number] 00:00:00 00:00:00 Ortiz Chan [id number] [place] 4.2.7.2.686 Professio [phone] [address] 2020-11-12 2020-11-12 Office [facility] 1.2.840.114 [id number] [facility] 12:49:24 13:48:31 Visit Ortiz Chan [id number] i ty [place] [phone] [address] 2020-11-12 2020-11-12 [facility] 1.2.840.114 [id number] 12:49:24 13:48:31 Visit Ortiz Chan [id number] [place] [id number] Professio [phone] [address] 2020-11-12 2020-11-12 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 2, Adc Lab [facility] 1.2.840.114 [id number] Univers 13:33:26 13:48:26 Visit Ortiz Harrison 350.1.13.10 ity [facility] 4.2.7.2.[place] [phone] [address] 2020-11-12 2020-11-12 [facility] [id number] Univers 13:00:00 13:00:00 [facility] 2020-11-11 2020-11-11 Outpatient R [facility] [id number] Univers 13:00:00 13:00:00 [facility] 2020-10-28 2020-10-28 Outpatient R [facility] [id number] Univers 13:00:00 13:00:00 [facility] 2020-09-08 2020-09-08 Telephone [facility] 1.2.840.114 [id number] Univers 00:00:00 00:00:00 Ortiz Chan 350.1.13.10 i [place] 4[place].2.[place] [phone] [facility] [address] [facility] 2020-07-27 2020-07-27 Refill [facility] 1.2.840.114 [id number] Univers 00:00:00 00:00:00 Ortiz Chan 350.1.13.10 i [place] 4[place].2.[place] [phone] [address] 2020-07-24 2020-07-24 [id number] Univers 13:20:00 13:20:00 ORTIZ caban [facility] 2020-07-21 2020-07-21 [id number] Univers 09:20:00 09:20:00 ORTIZ caban [facility] 2020-07-21 2020-07-21 [facility] 1.2.840.114 [id number] [facility] 07:54:10 08:14:10 ne Visit Ortiz Chan [id number] ity [place] 4[place]2.[place].2.[place] [phone] [address] 2020-07-01 2020-07-01 Refill [facility] 1.2.840.114 [id number] Univers 00:00:00 00:00:00 [facility] [id number] it y of [place] 4.2.7.2.686 [place] Professio [phone] [address] 2020-06-25 2020-06-25 Refill [facility] 1.2.840.114 [id number] Univers 00:00:00 00:00:00 Ortiz Chan 350.1.13.10 i [place] 4[place] [phone] [address] 2020-05-26 2020-05-26 [facility] 1.2.840.114 [id number] Univers 00:00:00 00:00:00 [facility] [id number] it y of [place] 4.2.7.2.686 [place] Professio [phone] [address] 2020-05-07 2020-05-07 Office [facility] 1.2.840.114 [id number] Univers 14:25:14 15:24:19 Visit Ortiz Chan 350.1.13.10 i ty [place] 4[place]2.[place] [phone] [address] 2020-05-07 2020-05-07 [id number] Univers 14:00:00 14:00:00 ORTIZ [place] of [facility] 2020-04-28 2020-04-28 [facility] 1.2.840.114 [id number] Univers 00:00:00 00:00:00 Rachna A [place] 350.1.13.10 ity [place] 4[place]2.[place].2.[place] [phone] [address] 2020-03-30 2020-03-30 [facility] 1.2.840.114 [id number] Univers 00:00:00 00:00:00 Rachna A [place] 350.1.13.10 ity of [place] 4[place]2.[place].2.[place] [phone] [address] 2020-02-25 2020-02-25 Ramón Velasquez [facility] 1.2.840.114 [id number] Univers 00:00:00 00:00:00 Rachna A [place] 350.1.13.10 ity of [place] 4[place]2.[place].2.[place] [phone] [address] 2020-02-05 2020-02-05 Brent Velasquez [facility] 1.2.840.114 [id number] Univers 13:23:14 14:05:53 Visit Rachna [place] 350.1.13.10 ity [place] 4[place]2.7.2.[place] [phone] [address] 2020-02-05 2020-02-05 Outpatient Emile VELASQUEZ [facility] [id number] Univers 13:40:00 13:40:00 RACHNA caban of [facility] 2020-02-05 2020-02-05 Orders Doctor ESQUIVEL 1.2.840.114 [id number] Univers 00:00:00 00:00:00 Only Unassigned, [place] 350.1.13.[address] [facility] [facility] 4.2.7.2.686 Mt as [phone] [address] 2020-02-04 2020-02-04 Outpatient R RON [facility] [id number] Univers 14:20:00 14:20:00 RACHNA ity [facility] 2020-01-27 2020-01-27 [facility] 1.2.840.114 [id number] Univers 00:00:00 00:00:00 Rachna A [place] 350.1.13.10 ity [place] 4[place] [phone] [address] 2020-01-06 2020-01-06 [facility] [id number] Univers 13:00:00 13:00:00 RACHNA itchelsea [facility] 2020-01-06 2020-01-06 Telemedici [facility] 1.2.840.114 [id number] Univers 08:17:25 08:37:25 ne Visit Rachna A [place] 350.1.13.10 ity of [place] 4[place] [phone] [address] 2019-12-26 2019-12-26 [facility]phone [facility] [id number] Univers 00:00:00 00:00:00 Rachna A [place] 350.1.13.10 ity of [place] 4[place]7.2.[place] [phone] [address] 2019-11-25 2019-11-25 [facility] 1.2.840.114 [id number] Univers 00:00:00 00:00:00 Rachna A [place] 350.1.13.10 ity [place] 4[place]2.[place].2.[place] [phone] [address] 2019-11-24 2019-11-24 [place] [facility] [id number] Univers 00:00:00 00:00:00 Rachna A [place] 350.1.13.10 it[place] of [place] 4[place]2.[place].2.[place] [phone] Me dical nal [address] [facility] 2019-10-30 2019-10-30 Telephone Ron ALLASHELL [id number] Univers 00:00:00 00:00:00 Rachna Chan 350.1.13.10 it[place] of [place] 4[place].2.[place] [phone] [facility] [address] [facility] 2019-10-28 2019-10-28 Refill Ron ALLASHELL 1.2.840.114 [id number] Univers 00:00:00 00:00:00 Rachna Chan 350.1.13.10 it[place] of [place] 4[place]2.[place] [phone] [facility] [address] [facility] 2019-10-08 2019-10-08 Office Ron ALLASHELL 1.2.840.114 [id number] Univers 08:55:18 09:40:29 Visit Rachna Chan 350.1.13.10 it[place] of [place] 4[place].2.[place] [phone] [address] 2019-10-08 2019-10-08 Outpatient R RON ALLASHELL [facility] [id number] Univers 08:50:00 09:40:29 RACHNA ity of [facility] 2019-10-08 2019-10-08 Patient Mccullough ALLASHELL 1.2.840.114 [id number] Univers 00:00:00 00:00:[address] [facility] 350.1.13.10 i ty of [place] [id number] [place] [phone] [facility] [address] [facility] 2019-09-23 2019-09-23 Refill Ron ALLASHELL [id number] Univers 00:00:00 00:00:00 Rachna Chan [id number] [id number] [phone] [place] [facility] [address] [facility] 2019-05-02 2019-05-02 Office Ron [facility] [id number] Univers 08:57:27 09:30:06 Visit Rachna Chna [id number] [id number] [phone] [address] 2019-05-02 2019-05-02 Telephone Ron [facility] [id number] Univers 00:00:00 00:00:00 Rachna Chan [id number] [id number] [phone] [address] 2019-05-02 2019-05-02 [facility]phone [facility] [id number] Univers 00:00:00 00:00:00 Cony Chan [id number] i [id number] [phone] [address] 2019-05-02 2019-05-02 [facility] [id number] Univers 00:00:00 00:00:00 (Out) Rachna Chan [id number] it[id number] [phone] [address] 2019-05-02 2019-05-02 [facility] [id number] Univers 00:00:00 00:00:00 Rachna Chan [id number] [place] [id number] [phone] [address] 2019-05-01 2019-05-01 [facility] 1.2.840.114 [id number] Univers 11:33:07 12:12:50 Visit Rachna Chan [id number] [place] [id number] [phone] [address] 2019-05-01 2019-05-01 [facility] [id number] Univers 00:00:00 00:00:00 (Out) Rachna Chan [id number] it[id number] [phone] [facility] 225 [facility] 2019-04-24 2019-04-24 Refill Ron [facility] 1.2.840.114 [id number] Univers 00:00:00 00:00:00 Rachna Chan [id number] [place] [id number] [phone] [address] 2019-03-28 2019-04-03 Office Krish [facility] [id number] [facility] 11:05:19 17:35:49 Visit Cony Chan [id number] i [place] [id number] [phone] [address] 2019-03-28 2019-04-01 Office Cony Rutherford [address]1 [id number] [facility] 09:42:44 14:55:16 Visit Rachna Velasquez [id number]. 10 [place] [id number] [phone] [address] 2019-03-29 2019-03-29 Refill Krish [facility] [id number] [facility] 00:00:00 00:00:00 Cony Chan [id number] [place] [id number] [phone] [address] Results This patient has no known results.
[2023-07-10] MEDS ORDERED: ONDANSETRON 4 MG/2 ML VIAL ONE (03:05)
[2023-07-10] MEDS ORDERED: KETOROLAC 30 MG/ML INJ ONE (03:05)
[2023-07-10] MEDS ORDERED: NA CHLORIDE 0.9% 1,000 ML ONE (03:05)
[2023-07-10 03:25] LABS: Albumin 4.1 g/dL (3.4-5.0); Bilirubin Total 0.4 mg/dL (0.2-1.0); Potassium 3.4 mEq/L (3.5-5.1); Protein, Total 8.4 g/dL (6.4-8.2)
[2023-07-10 03:27] LABS: Absolute Lymphocytes (CBC) 2.6 K/uL (0.7-4.9); Hematocrit 44.6 % (39.6-49.0); Lymphocytes % 43.6 % (15.3-44.8); MCV 85.2 fL (80-100); MPV 8.3 fL (7.6-11.3); Platelets 206 thou/uL (152-406); RBC Red Blood Cell Count 5.24 M/uL (4.33-5.43)
--- NOTE | 2023-07-10 04:09 | ER ---
Nurse's Notes [facility] Name: Fly De Luna Age: 22 yrs Sex: Male : 2000 Arrival Date: 07/10/2023 Time: 02:14 Bed 18 Private MD: Diagnosis: Viral infection, unspecified;Hypokalemia Presentation: 07/10 02:31 Chief complaint: Patient states: vomiting and fever x1 week. Coronavirus screen: At as6 this time, the client does not indicate any symptoms associated with coronavirus-19. Ebola Screen: No symptoms or risks identified at this time. Initial Sepsis Screen: Does the patient meet any 2 criteria? No. Patient's initial sepsis screen is negative. Does the patient have a suspected source of infection? No. Patient's initial sepsis screen is negative. Risk Assessment: Do you want to hurt yourself or someone else? Patient reports no desire to harm self or others. Onset of symptoms was July 07, 2023. 02:31 Acuity: DUC 4 as6 02:31 Method Of Arrival: Ambulatory as6 Triage Assessment: 02:45 General: Appears in no apparent distress. comfortable, Behavior is calm, cooperative. jw7 Pain: Complains of pain in abdomen Pain does not radiate. Pain currently is 5 out of 10 on a pain scale. Quality of pain is described as crampy, Pain began suddenly, Is continuous. EENT: No deficits noted. No signs and/or symptoms were reported regarding the EENT system. Neuro: Sandoval Agitation-Sedation Scale (RASS): 0 - Alert and Calm Level of Consciousness is awake, alert, obeys commands, Oriented to person, place, time, situation. Cardiovascular: No deficits noted. Respiratory: No deficits noted. GI: Abdomen is flat, non-distended, Bowel sounds present X 4 quads. Reports lower abdominal pain, upper abdominal pain, nausea, vomiting. : No deficits noted. No signs and/or symptoms were reported regarding the genitourinary system. Derm: No deficits noted. No signs and/or symptoms reported regarding the dermatologic system. Musculoskeletal: No deficits noted. No signs and/or symptoms reported regarding the musculoskeletal system. Historical: - Allergies: 02:31 PENICILLINS; as6 - PMHx: 02:31 None; as6 - PSHx: 02:31 None; as6 - Immunization history:: Adult Immunizations up to date. - Social history:: Smoking status: Reported history of juuling and/or vaping. Screenin:45 [facility] ED Fall Risk Assessment (Adult) History of falling in the last 3 months, jw7 including since admission No falls in past 3 months (0 pts) Score/Fall Risk Level 0 - 2 = Low Risk Oriented to surroundings, Maintained a safe environment. Abuse screen: Denies threats or abuse. Denies injuries from another. Nutritional screening: No deficits noted. Tuberculosis screening: No symptoms or risk factors identified. Assessment: 02:50 General: see triage assessment. jw7 03:00 Reassessment: Patient appears in no apparent distress at this time. No changes from jw7 previously documented assessment. Patient and/or family updated on plan of care and expected duration. Pain level reassessed. Patient is alert, oriented x 3, equal unlabored respirations, skin warm/dry/pink. 04:00 Reassessment: Patient appears in no apparent distress at this time. Patient and/or jw7 family updated on plan of care and expected duration. Pain level reassessed. Patient is alert, oriented x 3, equal unlabored respirations, skin warm/dry/pink. Patient states feeling better. Patient states symptoms have improved. Pain: Denies pain. GI: Abdomen is flat, non-distended. Vital Signs: 02:29 BP 162 / 86; Pulse 85; Resp 18 S; Temp 98.6(O); Pulse Ox 100% on R/A; Weight 81.65 kg as6 (R); Height 5 ft. 10 in. (R); Pain 9/10; 03:30 BP 134 / 82; Pulse 75; Resp 16 S; Pulse Ox 96% on R/A; jw7 04:08 BP 138 / 79; Pulse 61; Resp 17 S; Pulse Ox 96% on R/A; jw7 02:29 Body Mass Index 25.83 (81.65 kg, 177.8 cm) as6 02:29 Pain Scale: Adult as6 ED Course: 02:17 Patient arrived in ED. jj6 02:19 Kurt Méndez MD is Attending Physician. ec2 02:29 Arm band placed on. as6 02:32 Triage completed. as6 02:42 CXR XRAY In Process Unspecified. EDMS 02:43 Waits, Sierra, RN is Primary Nurse. jw7 02:45 Patient has correct armband on for positive identification. Bed in low position. Call jw7 light in reach. Side rails up X 1. 03:00 Inserted saline lock: 20 gauge in right antecubital area, using aseptic technique. [facility] Blood collected. 03:01 Influenza Screen (a \T\ B) Sent. [facility] 03:01 CMP Sent. [facility] 03:01 CBC with Diff Sent. [facility] 04:09 No provider procedures requiring assistance completed. jw7 04:16 IV discontinued, intact, bleeding controlled, No redness/swelling at site. Pressure jw7 dressing applied. 04:17 Provided Education on: discharge instructions and medication usage. jw7 Administered Medications: 03:02 Drug: Ondansetron IVP 4 mg IVP once; over 2 minutes Route: IVP; Site: right antecubital;jw7 04:08 Follow up: Response: No adverse reaction; Marked relief of symptoms jw7 03:02 Drug: Ketorolac IVP 15 mg IVP once Route: IVP; Site: right antecubital; jw7 04:08 Follow up: Response: No adverse reaction; Marked relief of symptoms jw7 03:03 Drug: NS 0.9% IV 1000 ml IV at 1 bolus Per protocol; 1000 mL bolus Route: IV; Rate: 1 jw7 bolus; Site: right antecubital; 04:08 Follow up: Response: No adverse reaction; IV Status: Completed infusion; IV Intake: jw7 1000ml Medication: 04:09 VIS not applicable for this client. jw7 Intake: 04:08 IV: 1000ml; Total: 1000ml. jw7 Outcome: 04:08 Discharge ordered by . jose 04:16 Discharged to home ambulatory, with family, jw7 04:16 Condition: stable 04:16 Discharge instructions given to patient, Instructed on discharge instructions, follow up and referral plans. medication usage, Demonstrated understanding of instructions, follow-up care, medications, Prescriptions given X 1, 04:17 Patient left the ED. jw7 Signatures: Dispatcher [employer] [facility] Elizabeth Zuniga jjSeven Goldstein RN RN as6 Sierra Maurice RN RN jw7 Kurt Méndez MD MD ec2 Ingrid, Hallie Maroul kmf
--- NOTE | 2023-07-10 04:09 | EDPHYS ---
Physician Documentation [facility] Name: Fly De Luna Age: 22 yrs Sex: Male : 2000 Arrival Date: 07/10/2023 Time: 02:14 Bed 18 Private MD: ED Physician Kurt Méndez HPI: 07/10 02:31 This 22 yrs old Male presents to ER via Unassigned with complaints of ec2 Nausea/Vomiting, Fever. 02:31 Patient arrives today due to concern for cough and cold symptoms with associated ec2 nausea, vomiting as well as fevers. Patient reports having urinary symptoms for several days, states he is having a productive sputum, reports no difficulty breathing. States decreased p.o. intake with associated nausea and vomiting. Patient reports some subjective fevers and chills. Reports no medical problems, no allergies, no medications.. Historical: - Allergies: 02:31 PENICILLINS; as6 - PMHx: 02:31 None; as6 - PSHx: 02:31 None; as6 - Immunization history:: Adult Immunizations up to date. - Social history:: Smoking status: Reported history of juuling and/or vaping. ROS: 02:31 Constitutional: as per hpi ec2 Exam: 02:31 Constitutional: GEN: NAD Head: atraumatic Eyes: EOMI Ears: External ears are ec2 normal. CV: regular rate LUNGS: no respiratory distress, no wheezes, rales, rhonchi ABD: non-distended, soft, nontender, no guarding, nonrigid SKIN: no evidence of rashes MSK: no evidence of trauma NEURO: moves all extremities equally Vital Signs: 02:29 BP 162 / 86; Pulse 85; Resp 18 S; Temp 98.6(O); Pulse Ox 100% on R/A; Weight 81.65 kg as6 (R); Height 5 ft. 10 in. (R); Pain 9/10; 03:30 BP 134 / 82; Pulse 75; Resp 16 S; Pulse Ox 96% on R/A; jw7 04:08 BP 138 / 79; Pulse 61; Resp 17 S; Pulse Ox 96% on R/A; jw7 02:29 Body Mass Index 25.83 (81.65 kg, 177.8 cm) as6 02:29 Pain Scale: Adult as6 MDM: 02:30 Patient medically screened. ec2 02:31 Data reviewed: vital signs. ED course: Patient arrives today due to concern for URI ec2 signs and symptoms associated nausea and vomiting. Examination remarkable for well-appearing nontoxic dividual is otherwise in no acute distress with reassuring vital signs and is otherwise afebrile. Will obtain lab work to evaluate for symptoms of dehydration or electrolyte disturbances, will obtain chest x-ray to evaluate for pneumonia as well as viral swabs. We will give the patient crystalloid, antiemetic, Toradol and reassess the patient. . 03:12 ED course: Chest x-ray independently reviewed and interpreted by me, shows no acute ec2 intrathoracic process. No evidence of focal consolidation. . 03:32 ED course: CBC and CMP are reassuring, slight hypokalemia noted. . ec2 04:07 ED course: On reassessment patient with improving symptoms. Will discharge home. Return ec2 precautions given.. 07/10 02:30 Order name: CBC with Diff; Complete Time: 03:32 ec2 07/10 02:30 Order name: CMP; Complete Time: 03:32 ec2 07/10 02:30 Order name: COVID-19 SARS RT PCR; Complete Time: 04:10 ec2 07/10 02:30 Order name: Influenza Screen (a \T\ B); Complete Time: 04:05 ec2 07/10 02:30 Order name: CXR XRAY ec2 Administered Medications: 03:02 Drug: Ondansetron IVP 4 mg IVP once; over 2 minutes Route: IVP; Site: right antecubital;jw7 04:08 Follow up: Response: No adverse reaction; Marked relief of symptoms jw7 03:02 Drug: Ketorolac IVP 15 mg IVP once Route: IVP; Site: right antecubital; jw7 04:08 Follow up: Response: No adverse reaction; Marked relief of symptoms jw7 03:03 Drug: NS 0.9% IV 1000 ml IV at 1 bolus Per protocol; 1000 mL bolus Route: IV; Rate: 1 jw7 bolus; Site: right antecubital; 04:08 Follow up: Response: No adverse reaction; IV Status: Completed infusion; IV Intake: jw7 1000ml Disposition Summary: 07/10/23 04:08 Discharge Ordered Notes: Location: Home ec2 Condition: Stable ec2 Diagnosis - Viral infection, unspecified ec2 - Hypokalemia ec2 Followup: ec2 - With: Private Physician - When: As needed - Reason: Recheck today's complaints Discharge Instructions: - Discharge Summary Sheet ec2 - Potassium Content of Foods ec2 - Viral Illness, Adult ec2 Forms: - Work release form ec2 - Medication Reconciliation Form ec2 - Thank You Letter ec2 - Antibiotic Education ec2 - Prescription Opioid Use ec2 - Patient Portal Instructions ec2 - Leadership Thank You Letter ec2 Prescriptions: - Zofran 4 mg Oral Tablet - take 1 tablet ORAL route every 12 hours As needed; 20 tablet; Refills: 0, ec2 Product Selection Permitted Signatures: Dispatcher [employer] Seven Perry RN RN as6 Sierra Maurice RN RN jw7 Kurt Méndez MD MD ec2
[2023-07-10 04:24] VITALS: TEMP 98.6
[2023-07-10 04:25] VITALS: O2SAT 96
[2023-07-10 04:26] VITALS: BP 138/79
--- NOTE | 2023-07-10 12:47 | RAD REPORT ---
EXAM DESCRIPTION: RAD - Chest Single View - 07/10/2023 2:40 am CLINICAL HISTORY: COUGH COMPARISON: None. FINDINGS: Single frontal radiograph view of the chest. Cardiomediastinal silhouette: Normal size and contour. Lungs: No consolidation, pneumothorax, or pleural effusion. Bones: No acute osseous abnormality. Upper abdomen: No abnormality identified. IMPRESSION: 1. No acute pulmonary process identified. Electronically signed by: Allan Parry DO 07/10/2023 03:09 AM IT INFRASTRUCTURE MANAGER M Due to temporary technical issues with the PACS/Fluency reporting system, reports are being signed by the in house radiologist without review as a courtesy to ensure prompt reporting. The interpreting r adiologist is fully responsible for the content of the report.
== END 2023-07-10 04:17 | disposition home or self-care (01) ==
LOC: ER 02:14
DX: B34.9 Viral infection, unspecified (principal); E87.6 Hypokalemia; Z11.52 Encounter for screening for COVID-19
CPT/HCPCS: 36415; 71045; 80053; 85025; 87635; 87804; 96361; 96374; 96375; 99284; J2405; J7030